=== PATIENT | female | born 1970 | race Caucasian/White ===

== ENCOUNTER 2019-07-29 10:25 | Emergency (ER) | payer OTHER, MEDICAID, SELFPAY ==
[2019-07-29 10:35] VITALS: BP 117/74; PULSE 75; RESP 15; TEMP 37.1; O2SAT 100; BMI 24.1
[2019-07-29 11:10] VITALS: BP 105/69; PULSE 72; RESP 17; O2SAT 98
--- NOTE | 2019-07-29 11:17 | ED_ITS ---
HPI - Neck Pain/Injury <IRWIN Smith - Last Filed: 07/29/19 22:02> General Chief Complaint: Neck Pain/Injury Stated Complaint: Neck/back pain Time Seen by Provider: 07/29/19 10:59 Source: patient Mode of arrival: ambulatory Limitations: no limitations History of Present Illness HPI Narrative: 48-year-old female with a history of viral meningitis 4 times, presents emergency department today complaining of chest pain for the last week, she states it was intermittent 3/10 sternal pressure that had no aggravating or relieving factors and spontaneously resolved and week. After resolved, she reported she woke up with full body aches and an episode of dizziness 5 days ago. The following day she developed a spinal aching as well as a headache. She reports her headache is diffuse and cannot locate a spot that is more severe, she states the headache is 8/10 and is worse with every step she takes or when her children drop on the bed. She states the pain radiates up and down her spine. Her headaches have been unchanged since 4 days ago. She does report a few episodes of nausea vomiting, she does not feel nauseated today. She does report she wakes up from the pain and occasionally finds herself in a pool of sweat. 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 She denies any vision changes, photophobia, phonophobia, hearing changes, facial droop, dysphagia, fevers, shortness of breath, chest pain at this time, difficulty walking, muscle weakness, dizziness at this time, or other concerning symptoms. Related Data Home Medications Medication Instructions Recorded Confirmed alprazolam 0.25 - 0.5 mg PO BEDTIME PRN 07/29/19 07/29/19 temazepam 15 - 30 mg PO BEDTIME PRN 07/29/19 07/29/19 valacyclovir 500 mg PO BID 07/29/19 07/29/19 Previous Rx's Medication Instructions Recorded ketorolac 10 mg PO Q6H #10 tab 07/29/19 Allergies Allergy/AdvReac Type Severity Reaction Status Date / Time No Known Drug Allergies Allergy Verified 07/29/19 10:35 Review of Systems <IRWIN Smith - Last Filed: 07/29/19 22:02> Review of Systems Narrative: REVIEW OF SYSTEMS: GENERAL: Denies fever, reports waking up in sweat, see HPI. HENT: No head trauma, hearing loss or sore throat. EYES: No loss of vision, double vision, eye pain, or irritation. CARDIOVASCULAR: Reports intermittent chest pain, see HPI. RESPIRATORY: No shortness of breath or cough. GASTROINTESTINAL: Reports an episode of nausea and vomiting, see HPI. GENITOURINARY: No flank pain or dysuria. MUSCULOSKELETAL: Reports myalgias, see HPI. Denies weakness. INTEGUMENTARY: No rash, lesions, or pruritus. NEURO: Reports headaches and neck pain, see HPI. No numbness, tingling, memory loss, or confusion. PSYCH: No behavior or mood changes. PFSH <IRWIN Smith - Last Filed: 07/29/19 22:02> Medical History Viral meningitis (Acute) Social History Smoking Status: Former smoker Social History Smoking Status: Former smoker Exam <IRWIN Smith - Last Filed: 07/29/19 22:02> Initial Vital Signs Initial Vital Signs: Vital Signs Temperature 98.8 F 07/29/19 10:35 Pulse Rate 75 07/29/19 10:35 Respiratory Rate 15 07/29/19 10:35 Blood Pressure 117/74 07/29/19 10:35 Pulse Oximetry 100 07/29/19 10:35 PHYSICAL EXAMINATION: GENERAL: Well groomed, alert, and cooperative. Sitting in bed with eyes wide open in all the lights in the room, patient does not appear to be in any distress. Answers questions promptly and appropriately. Vital signs noted. HENT: Normocephalic, atraumatic. Ear canals patent. Oral mucosa is pink and moist. EYES: PERRLA, EOMIs without pain, Conjunctiva pink, sclera white, no periorbital swelling. NECK: Patient reports increased pain and had with chin to chest movement, full range of motion of neck. However, negative Brudzinski and Kernig sign. CHEST: Normal to inspection and without deformities. CARDIOVASCULAR: S1 and S2 sounds normal. Regular rate and rhythm, no murmurs, clicks, or bruits. No pedal edema. RESPIRATORY: Normal respiratory rate, trachea midline, airway patent. No stridor, nasal flaring or accessory muscle use. Lungs are clear in all bowen without wheeze, rhonchi, or crackles. GASTROINTESTINAL: Bowel sounds normoactive. Abdomen is soft and non-tender. No organomegaly. MUSCULOSKELETAL: Normal gait and coordination. Equal tone and mass bilaterally. EXTREMITIES: CMS intact. Moves all extremities. SKIN: Warm, dry, soft, appropriate color for ethnicity. No lesions, rashes, or wounds. NEURO: Patient reports increased pain and had with chin to chest movement, full range of motion of neck. However, negative Brudzinski and Kernig sign. Oriented X 3. CN III-XIII grossly intact. Good coordination. No ataxia, or sensory deficits, or cognitive issues. PSYCH: Appropriate affect and mood. <Cecelia Dao MD - Last Filed: 07/30/19 16:24> Initial Vital Signs Initial Vital Signs: Vital Signs Temperature 98.8 F 07/29/19 10:35 Pulse Rate 75 07/29/19 10:35 Respiratory Rate 15 07/29/19 10:35 Blood Pressure 117/74 07/29/19 10:35 Pulse Oximetry 100 07/29/19 10:35 Course <IRWIN Smith - Last Filed: 07/29/19 22:02> Course Course Narrative: Patient reported she was feeling much better after the administration of fluids and Toradol. I discussed with patient extensively that her neuro examination and labs were reassuring, that a spinal tap was not indicated at this time as there was very little concern for bacterial meningitis. She requested to be referred to a headache specialist, referral was placed and she was sent home with pain medications. She was given very strict return precautions. Orders Ordered: Discontinued Medications Sodium Chloride (Normal Saline 0.9%) 1,000 mls @ 1,000 mls/hr IV BOLUS ONE Stop: 07/29/19 12:14 Last Infusion: 07/29/19 13:29 Dose: 1,000 mls/hr Documented by: Admin: 07/29/19 11:38 Dose: 1,000 mls/hr Documented by: JACKIE Ketorolac Tromethamine (Toradol) 30 mg IV NOW ONE Stop: 07/29/19 11:16 Last Admin: 07/29/19 11:37 Dose: 30 mg Documented by: BTONER Consultations Consultation #1: Patient staffed with Dr. Dao who also agreed that a spinal tap was not needed at this time. Vital Signs Vital signs: Vital Signs - 8 hr 07/29/19 10:35 07/29/19 11:10 Temperature 98.8 F Pulse Rate 75 72 Respiratory Rate 15 17 Blood Pressure 117/74 Blood Pressure [Left Arm] 105/69 Pulse Oximetry 100 98 <Cecelia Dao MD - Last Filed: 07/30/19 16:24> Orders Ordered: Discontinued Medications Sodium Chloride (Normal Saline 0.9%) 1,000 mls @ 1,000 mls/hr IV BOLUS ONE Stop: 07/29/19 12:14 Last Infusion: 07/29/19 13:29 Dose: 1,000 mls/hr Documented by: Admin: 07/29/19 11:38 Dose: 1,000 mls/hr Documented by: BTONER Ketorolac Tromethamine (Toradol) 30 mg IV NOW ONE Stop: 07/29/19 11:16 Last Admin: 07/29/19 11:37 Dose: 30 mg Documented by: BTONER Vital Signs Vital signs: Vital Signs - 8 hr 07/29/19 10:35 07/29/19 11:10 Temperature 98.8 F Pulse Rate 75 72 Respiratory Rate 15 17 Blood Pressure 117/74 Blood Pressure [Left Arm] 105/69 Pulse Oximetry 100 98 MDM - Neck Pain/Injury <IRWIN Smith - Last Filed: 07/29/19 22:02> Medical Records Attestation: I reviewed the patient's medical records. Lab Data Attestation: I reviewed the patient's lab results. Result diagrams: 07/29/19 11:40 07/29/19 12:14 Labs: Lab Results 07/29/19 07/29/19 07/29/19 Range/Units 11:40 11:40 11:40 WBC 5.0 (4.5-11.0) X10^3/uL RBC 4.21 (4.0-5.2) X10^6/uL Hgb 12.3 (12.0-16.0) g/dL Hct 36.9 (36-46) % MCV 87.8 (80-100) fL MCH 29.2 (26-34) PG MCHC 33.3 (30-36) % RDW 14.1 (11.6-14.8) % Plt Count 207 (150-400) X10^3/uL Neut % (Auto) 73.7 (50-75) % Lymph % (Auto) 16.6 L (25-40) % [place] % (Auto) 8.0 (3-14) % Eos % (Auto) 0.5 L (2-4) % Baso % (Auto) 1.2 (0-2) % Neut # (Auto) 3700 (2664-0234) /uL Lymph # (Auto) 800 L (2553-3822) /uL [place] # (Auto) 400 (0-900) /uL Eos # (Auto) 0 (0-450) /uL Baso # (Auto) 100 (0-100) /uL ESR 9 (0-20) MM/HR Sodium (137-145) mmol/L Potassium (3.4-5.1) mmol/L Chloride (98-107) mmol/L Carbon Dioxide (22-32) mmol/L BUN (7-17) mg/dL Creatinine (0.52-1.04) mg/dL Estimated GFR (>60) mL/min BUN/Creatinine Ratio (6-22) Glucose (70-100) mg/dL Calcium (8.4-10.2) mg/dL Total Bilirubin (0.2-1.3) mg/dL AST (14-36) IU/L ALT (9-52) IU/L Alkaline Phosphatase (38-126) U/L Total Creatine Kinase (30-135) U/L CK-MB (CK-2) CK-MB (CK-2) Rel Index Troponin I (0.01-0.034) ng/mL C-Reactive Protein (<1.0) mg/dL Total Protein (6.3-8.2) g/dL Albumin (3.5-5.0) g/dL Globulin (1.7-4.1) g/dL Albumin/Globulin Ratio (1.0-2.8) Influenza A & B (PCR) Negative (Negative) 07/29/19 07/29/19 07/29/19 Range/Units 12:14 12:14 12:14 WBC (4.5-11.0) X10^3/uL RBC (4.0-5.2) X10^6/uL Hgb (12.0-16.0) g/dL Hct (36-46) % MCV (80-100) fL MCH (26-34) PG MCHC (30-36) % RDW (11.6-14.8) % Plt Count (150-400) X10^3/uL Neut % (Auto) (50-75) % Lymph % (Auto) (25-40) % [place] % (Auto) (3-14) % Eos % (Auto) (2-4) % Baso % (Auto) (0-2) % Neut # (Auto) (4563-6378) /uL Lymph # (Auto) (2751-3029) /uL [place] # (Auto) (0-900) /uL Eos # (Auto) (0-450) /uL Baso # (Auto) (0-100) /uL ESR (0-20) MM/HR Sodium 139 (137-145) mmol/L Potassium 4.2 (3.4-5.1) mmol/L Chloride 110 H (98-107) mmol/L Carbon Dioxide 23 (22-32) mmol/L BUN 14 (7-17) mg/dL Creatinine 0.70 (0.52-1.04) mg/dL Estimated GFR > 60.0 (>60) mL/min BUN/Creatinine Ratio 20.0 (6-22) Glucose 85 (70-100) mg/dL Calcium 8.4 (8.4-10.2) mg/dL Total Bilirubin 0.3 (0.2-1.3) mg/dL AST 20 (14-36) IU/L ALT 22 (9-52) IU/L Alkaline Phosphatase 48 (38-126) U/L Total Creatine Kinase 53 (30-135) U/L CK-MB (CK-2) TNP CK-MB (CK-2) Rel Index TNP Troponin I < 0.012 (0.01-0.034) ng/mL C-Reactive Protein < 0.5 (<1.0) mg/dL Total Protein 6.1 L (6.3-8.2) g/dL Albumin 3.5 (3.5-5.0) g/dL Globulin 2.6 (1.7-4.1) g/dL Albumin/Globulin Ratio 1.3 (1.0-2.8) Influenza A & B (PCR) (Negative) ECG Data Interpretation: Normal sinus rhythm, rate 71, CT interval 144, QTC 380, no ST elevation or ST depression, no T-wave abnormality, no ectopy. EKG was also ready by Dr. Dao. [facility] Narrative Medical decision making narrative: Differential includes tension headache, neck strain, (these are most likely due to non remarkable labs, negative neurological exam, no nuchal rigidity). Less likely viral and bacterial meningitis (lack of photophobia or phonophobia, reassuring neurological exam, lack of recent illness, reassuring CRP and sed rate), cranial bleed (normal neurological exam). Patient was very well-appearing, could tolerate p.o. without vomiting, did not exhibit any sit it is of septic (high heart rate, elevated temperature, or other concerning finding) thus making her a good candidate for outpatient treatment. She was referred to the headache Clinic per request. Patient was given strict return precautions and follow-up instructions. <Cecelia Dao MD - Last Filed: 07/30/19 16:24> Lab Data Labs: Lab Results 07/29/19 07/29/19 07/29/19 Range/Units 11:40 11:40 11:40 WBC 5.0 (4.5-11.0) X10^3/uL RBC 4.21 (4.0-5.2) X10^6/uL Hgb 12.3 (12.0-16.0) g/dL Hct 36.9 (36-46) % MCV 87.8 (80-100) fL MCH 29.2 (26-34) PG MCHC 33.3 (30-36) % RDW 14.1 (11.6-14.8) % Plt Count 207 (150-400) X10^3/uL Neut % (Auto) 73.7 (50-75) % Lymph % (Auto) 16.6 L (25-40) % [place] % (Auto) 8.0 (3-14) % Eos % (Auto) 0.5 L (2-4) % Baso % (Auto) 1.2 (0-2) % Neut # (Auto) 3700 (8005-3107) /uL Lymph # (Auto) 800 L (9592-6759) /uL [place] # (Auto) 400 (0-900) /uL Eos # (Auto) 0 (0-450) /uL Baso # (Auto) 100 (0-100) /uL ESR 9 (0-20) MM/HR Sodium (137-145) mmol/L Potassium (3.4-5.1) mmol/L Chloride (98-107) mmol/L Carbon Dioxide (22-32) mmol/L BUN (7-17) mg/dL Creatinine (0.52-1.04) mg/dL Estimated GFR (>60) mL/min BUN/Creatinine Ratio (6-22) Glucose (70-100) mg/dL Calcium (8.4-10.2) mg/dL Total Bilirubin (0.2-1.3) mg/dL AST (14-36) IU/L ALT (9-52) IU/L Alkaline Phosphatase (38-126) U/L Total Creatine Kinase (30-135) U/L CK-MB (CK-2) CK-MB (CK-2) Rel Index Troponin I (0.01-0.034) ng/mL C-Reactive Protein (<1.0) mg/dL Total Protein (6.3-8.2) g/dL Albumin (3.5-5.0) g/dL Globulin (1.7-4.1) g/dL Albumin/Globulin Ratio (1.0-2.8) Influenza A & B (PCR) Negative (Negative) 07/29/19 07/29/19 07/29/19 Range/Units 12:14 12:14 12:14 WBC (4.5-11.0) X10^3/uL RBC (4.0-5.2) X10^6/uL Hgb (12.0-16.0) g/dL Hct (36-46) % MCV (80-100) fL MCH (26-34) PG MCHC (30-36) % RDW (11.6-14.8) % Plt Count (150-400) X10^3/uL Neut % (Auto) (50-75) % Lymph % (Auto) (25-40) % [place] % (Auto) (3-14) % Eos % (Auto) (2-4) % Baso % (Auto) (0-2) % Neut # (Auto) (8433-6475) /uL Lymph # (Auto) (1084-7632) /uL [place] # (Auto) (0-900) /uL Eos # (Auto) (0-450) /uL Baso # (Auto) (0-100) /uL ESR (0-20) MM/HR Sodium 139 (137-145) mmol/L Potassium 4.2 (3.4-5.1) mmol/L Chloride 110 H (98-107) mmol/L Carbon Dioxide 23 (22-32) mmol/L BUN 14 (7-17) mg/dL Creatinine 0.70 (0.52-1.04) mg/dL Estimated GFR > 60.0 (>60) mL/min BUN/Creatinine Ratio 20.0 (6-22) Glucose 85 (70-100) mg/dL Calcium 8.4 (8.4-10.2) mg/dL Total Bilirubin 0.3 (0.2-1.3) mg/dL AST 20 (14-36) IU/L ALT 22 (9-52) IU/L Alkaline Phosphatase 48 (38-126) U/L Total Creatine Kinase 53 (30-135) U/L CK-MB (CK-2) TNP CK-MB (CK-2) Rel Index TNP Troponin I < 0.012 (0.01-0.034) ng/mL C-Reactive Protein < 0.5 (<1.0) mg/dL Total Protein 6.1 L (6.3-8.2) g/dL Albumin 3.5 (3.5-5.0) g/dL Globulin 2.6 (1.7-4.1) g/dL Albumin/Globulin Ratio 1.3 (1.0-2.8) Influenza A & B (PCR) (Negative) Discharge Plan Departure Patient Disposition: Home Clinical Impression: Acute neck pain Headache Qualifiers: Headache type: other headache syndrome Qualified Code(s): G44.89 - Other headache syndrome Discharge Date/Time: 07/29/19 13:47 Instructions: DI for Viral Meningitis -- Adult Activity Restrictions/Additional Instructions: Thank you for entrusting me with your care today. As discussed, your labs are non concerning for heart problems or bacterial meningitis. We discussed that your inflammatory markers and neurologic exam are negative and that a lumbar puncture is not indicated today. Please follow up with her primary care provider or the provider listed below in the next week for re-evaluation. You may take ketorolac (Toradol) every 6 hours and Tylenol for pain, you can alternate these medications taking 1 every 3 hours, do not exceed more than 3 g of Tylenol in a day. Return to the emergency department if your headaches worsens, he develops high fevers, if uncontrollable vomiting, if chest pain, shortness of breath, syncope, confusion, or other concerning symptoms. Prescriptions: New ketorolac 10 mg tablet 10 mg PO Q6H Qty: 10 RF: 0 No Action valacyclovir 500 mg tablet 500 mg PO BID RF: 0 alprazolam 0.5 mg tablet 0.25 - 0.5 mg PO BEDTIME PRN (Reason: Insomnia) RF: 0 temazepam 15 mg capsule 15 - 30 mg PO BEDTIME PRN (Reason: Insomnia) RF: 0 Referrals: Camron Gastelum MD [Physician] - (Hx of viral meningitis x 4; continues to have episodes that feel like viral meningitis again. Patient requests referral. )
[2019-07-29] MEDS: KETOROLAC 60 MG/2 ML VIAL 30 MG IV (11:37)
[2019-07-29] MEDS: SODIUM CHLORIDE 0.9% 1,000 ML 1000 ML IV (11:38)
[2019-07-29 11:56] LABS: Add Manual Diff / Slide Review NO; Basophils Absolute Auto 100 /uL (0-100); Basophils Percent Auto 1.2 % (0-2); Eosinophils Absolute Auto 0 /uL (0-450); Eosinophils Percent Auto 0.5 % (2-4); Hematocrit 36.9 % (36-46); Hemoglobin 12.3 g/dL (12.0-16.0); Lymphocytes Absolute Auto 800 /uL (1100-4500); Lymphocytes Percent Auto 16.6 % (25-40); Mean Corpuscular HGB Conc 33.3 % (30-36); Mean Corpuscular Hemoglobin 29.2 PG (26-34); Mean Corpuscular Volume 87.8 fL (80-100); Monocytes Absolute Auto 400 /uL (0-900); Neutrophils Absolute Auto 3700 /uL (1500-7000); Neutrophils Percent Auto 73.7 % (50-75); Platelet Count 207 X10^3/uL (150-400); Red Blood Cell Count 4.21 X10^6/uL (4.0-5.2); Red Cell Distribution Width 14.1 % (11.6-14.8)
[2019-07-29 12:11] LABS: Erythrocyte Sedimentation Rate 9 MM/HR (0-20); Influenza A and B by PCR Rapid Negative (Negative)
[2019-07-29 12:32] LABS: Alanine Aminotransferase 22 IU/L (9-52); Albumin 3.5 g/dL (3.5-5.0); Albumin Globulin Ratio 1.3 (1.0-2.8); Alkaline Phosphatase 48 U/L (38-126); Aspartate Aminotransferase 20 IU/L (14-36); Bilirubin Total 0.3 mg/dL (0.2-1.3); Blood Urea Nitrogen 14 mg/dL (7-17); Calcium 8.4 mg/dL (8.4-10.2); Carbon Dioxide 23 mmol/L (22-32); Chloride 110 mmol/L (98-107); Creatine Kinase 53 U/L (30-135); Estimated Glomerular Filt Rate > 60.0 mL/min (>60); Globulin 2.6 g/dL (1.7-4.1); Glucose 85 mg/dL (70-100); HEMOLYSIS < 15 (0-50); Potassium 4.2 mmol/L (3.4-5.1); Sodium 139 mmol/L (137-145); Total Protein 6.1 g/dL (6.3-8.2)
[2019-07-29 12:35] LABS: C-Reactive Protein Quant < 0.5 mg/dL (<1.0)
[2019-07-29 12:44] LABS: Troponin I < 0.012 ng/mL (0.01-0.034)
[2019-07-29 13:47] VITALS: BP 116/71; PULSE 71; RESP 16; O2SAT 100
== END 2019-07-29 13:47 | disposition home or self-care (01) ==
PROVIDERS: Emergency Provider Nurse Practitioner
DX: M54.2 Cervicalgia (principal); G44.89 Other headache syndrome
CPT/HCPCS: 36415; 80053; 82550; 84484; 85025; 85651; 86140; 87400; 87502; 93005; 93010; 96361; 96374; 99283; 99284; J1885

== ENCOUNTER → 2021-08-27 08:51 | Outpatient (CLI) | payer OTHER, MEDICAID, SELFPAY ==
[2021-08-27 09:38] LABS: Hematocrit 39.8 % (36-46); Hemoglobin 13.1 g/dL (12.0-16.0); Mean Corpuscular HGB Conc 32.9 % (30-36); Mean Corpuscular Hemoglobin 29.8 PG (26-34); Mean Corpuscular Volume 90.5 fL (80-100); Platelet Count 212 X10^3/uL (150-400); Red Cell Distribution Width 14.8 % (11.6-14.8); White Blood Cell Count 6.7 X10^3/uL (4.5-11.0)
[2021-08-27 10:08] LABS: Alanine Aminotransferase 20 IU/L (<35); Albumin 3.8 g/dL (3.5-5.0); Albumin Globulin Ratio 1.5 (1.0-2.8); Alkaline Phosphatase 63 U/L (38-126); Aspartate Aminotransferase 26 IU/L (14-36); BUN Creatinine Ratio 16.7 (6-22); Bilirubin Total 0.4 mg/dL (0.2-1.3); Blood Urea Nitrogen 15 mg/dL (7-17); Calcium 9.3 mg/dL (8.4-10.2); Carbon Dioxide 27 mmol/L (22-32); Chloride 106 mmol/L (98-107); Cholesterol 172 mg/dL (140-199); Estimated Glomerular Filt Rate > 60.0 mL/min (>60); Globulin 2.6 g/dL (1.7-4.1); Glucose 77 mg/dL (70-100); HDL Cholesterol 70 mg/dL (40-60); HEMOLYSIS 22 (0-50); LDL Cholesterol Calculated 81 mg/dL (<100); Potassium 4.7 mmol/L (3.4-5.1); Sodium 138 mmol/L (137-145); Total Protein 6.4 g/dL (6.3-8.2); Triglycerides 105 mg/dL (35-150)
[2021-08-27 10:42] LABS: TSH w/ Reflex to FT4 1.85 uIU/mL (0.47-4.68)
== END ==
PROVIDERS: PCP Registered Nurse Diabetes Educator; Referring Provider Registered Nurse Diabetes Educator; Visit Provider Registered Nurse Diabetes Educator
DX: Z00.00 Encounter for general adult medical examination without abnormal findings (principal); E78.00 Pure hypercholesterolemia, unspecified; R73.01 Impaired fasting glucose
CPT/HCPCS: 36415; 80053; 80061; 84443; 85027

== ENCOUNTER → 2021-10-22 07:18 | Outpatient (CLI) | payer OTHER, MEDICAID, SELFPAY ==
--- NOTE | 2021-10-22 07:19 | DI.US.S_ITS ---
PROCEDURE: US PELVIC COMPLETE INDICATIONS: MENORRHAGIA TECHNIQUE: Real-time scanning was performed of the pelvic organs, with image documentation. Additional endovaginal scanning was necessary due to incomplete visualization of the adnexal and endometrial structures by transabdominal scanning. COMPARISON: None. FINDINGS: Uterus: Uterus is anteverted and normal in size at 9.2 x 6.3 x 6.2 cm. The myometrium is heterogeneous. The endometrium measures 18 mm combined thickness. Incidental note is made of nabothian cysts. An apparent complex nabothian cyst is seen that measures up to 1.2 cm. A left anterior fundal uterine fibroid is seen that measures up to 2 cm. Ovaries: The right ovary measures 3.7 x 2.8 x 2.1 cm. The left ovary measures 2.5 x 1.9 x 1.3 cm. The ovaries have a normal sonographic appearance, with a simple appearing right ovarian cyst seen that measures up to 2.9 cm, which is considered to be within physiologic limits. No adnexal masses are seen. Other: A mild amount of free pelvic fluid is seen, which is considered to be within physiologic limits. IMPRESSION: Thickening is seen of the endometrial stripe. 2 cm uterine fibroid incidentally noted. Nabothian cysts are seen, including a 1.2 cm complex nabothian cyst. We strive to produce accurate, complete, and clear reports of imaging services. To assist us in improving patient care, this report was composed using standard report templates and voice recognition software. Therefore, it may contain abnormal punctuation, insertions and/or omissions. Occasional wrong-word or sound-alike substitutions may occur. Though we review the report and make efforts to correct it, we do recommend that the report be read carefully in proper context to recognize any text inaccuracies. Dictated by: Papa Peralta M.D. on 10/22/2021 at 9:08 Approved by: Papa Peralta M.D. on 10/22/2021 at 9:10
== END ==
PROVIDERS: PCP Registered Nurse Diabetes Educator; Referring Provider Registered Nurse Diabetes Educator; Visit Provider Registered Nurse Diabetes Educator
DX: N92.0 Excessive and frequent menstruation with regular cycle (principal); D25.9 Leiomyoma of uterus, unspecified; R93.89 Abnormal findings on diagnostic imaging of other specified body structures; N88.8 Other specified noninflammatory disorders of cervix uteri
CPT/HCPCS: 76830; 76856

== ENCOUNTER → 2021-12-13 07:51 | Outpatient (CLI) | payer OTHER, MEDICAID, SELFPAY ==
--- NOTE | 2021-12-13 07:52 | DI.MG.S_ITS ---
BILATERAL DIGITAL SCREENING MAMMOGRAM 3D/2D WITH CAD: 12/13/2021 CLINICAL: Routine screening. Comparison is made to exams dated: 10/07/2019 mammogram, 02/03/2018 mammogram, 01/30/2018 mammogram, and 06/23/2015 mammogram - [facility]. The tissue of both breasts is heterogeneously dense. This may lower the sensitivity of mammography. Current study was also evaluated with a Computer Aided Detection (CAD) system. No significant masses, calcifications, or other findings are seen in either breast. There has been no significant interval change. IMPRESSION: NEGATIVE There is no mammographic evidence of malignancy. A 1 year screening mammogram is recommended. This exam was interpreted at Station ID: [id number]. NOTE: For mammograms, a report in lay terms will be sent to the patient. Approximately 15% of breast malignancies will not be visualized mammographically. In the management of a palpable breast mass, a negative mammogram must not discourage biopsy of a clinically suspicious lesion. Electronically Signed By: Renard parry/eduard:12/13/2021 09:01:22 letter sent: Normal Exam ACR BI-RADS Category 1: Negative [id number]
== END ==
PROVIDERS: PCP Registered Nurse Diabetes Educator; Referring Provider Registered Nurse Diabetes Educator; Visit Provider Registered Nurse Diabetes Educator
DX: Z12.31 Encounter for screening mammogram for malignant neoplasm of breast (principal)
CPT/HCPCS: 77063; 77067

== ENCOUNTER 2022-08-20 18:50 | Observation (INO) | payer OTHER, MEDICAID, SELFPAY ==
[2022-08-20] VITALS (11 sets, daily range): BP systolic 131; BP diastolic 64; PULSE 62–84; RESP 16–24; TEMP 37.1; O2SAT 95–97; BMI 25.8
--- NOTE | 2022-08-20 18:50 | DI.RAD.S_ITS ---
PROCEDURE: XR CHEST 1V INDICATIONS: chest pain TECHNIQUE: One view of the chest was acquired. COMPARISON: None. FINDINGS: Surgical changes and devices: None. Lungs and pleura: Lungs are clear. No pleural effusions or pneumothorax. Mediastinum: Mediastinal contours appear normal. Heart size is normal. Bones and chest wall: No suspicious bony lesions. Overlying soft tissues appear unremarkable. IMPRESSION: No acute cardiopulmonary abnormality. Dictated by: Renard Alcala M.D. on 08/20/2022 at 19:59 Approved by: Renard Alcala M.D. on 08/20/2022 at 20:04
--- NOTE | 2022-08-20 19:08 | ED.CHESTPAIN ---
HPI - Chest Pain General Chief Complaint: Chest Pain Stated Complaint: Chest pressure Time Seen by Provider: 08/20/22 18:52 History of Present Illness HPI narrative: Patient is a 51-year-old female with no past medical history is who presents with chest discomfort. 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 Pressure remained centrally located. No jaw pain. She was given is 3 nitroglycerines by EMS which did not help and finally morphine which did. She continues to have some chest discomfort but significantly more tolerable. Related Data Home Medications Medication Instructions Recorded Confirmed ascorbate calcium (vitamin C) PO 01/10/21 01/17/22 cholecalciferol (vitamin D3) PO 01/10/21 01/17/22 lactobacillus combination no.8 PO 01/10/21 01/17/22 [Adult Probiotic] melatonin 10 mg capsule 10 mg PO BEDTIME PRN 01/10/21 01/17/22 multivitamin [Daily Multivitamin] PO 01/10/21 01/17/22 zinc gluconate 30 mg tablet 30 mg PO DAILY 01/10/21 01/17/22 Previous Rx's Medication Instructions Recorded hydroxyzine HCl 10 mg tablet 10 mg PO BEDTIME #90 tabs 09/24/21 valacyclovir 500 mg tablet 500 mg PO BID #180 tabs 09/24/21 Allergies Allergy/AdvReac Type Severity Reaction Status Date / Time No Known Drug Allergies Allergy Verified 01/17/22 08:40 Review of Systems Review of Systems Narrative: GENERAL: Denies chills, fatigue, malaise, fever, sweats, travel HEENT: Denies sinus pain, ear pain, sore throat, difficulty swallowing, neck pain RESPIRATORY: Denies dyspnea, cough, wheezing, hemoptysis, sputum. CARDIOVASCULAR: See HPI GASTROINTESTINAL: Denies nausea, vomiting, abdominal pain, diarrhea, constipation, melena. : Denies dysuria, frequency, incontinence, hematuria, urinary retention, flank pain. MUSCULOSKELETAL: Denies weakness, joint pain, or bony pain SKIN: No rash, no erythema, no pruritus NEUROLOGIC: Denies weakness, dizziness, headache, numbness, change in speech, confusion PSYCHIATRIC: No concerning psychosocial issues. 12 point review of systems is negative except for those stated above and HPI Patient History Medical History ADHD Anxiety Enterovirus infection (~1999) History of uterine fibroid History of viral meningitis Impaired fasting blood sugar Menorrhagia Ovarian cyst Viral meningitis Surgical History Anesthesia Breast cyst History of section (~01/25/10) Family History Father Cancer Mother Hypertension Social History household members: family Smoking Status: Former smoker alcohol intake: never Smoking Status: Former smoker Substance Use Type: does not use Exam Initial Vital Signs Initial Vital Signs: Vital Signs Temperature 98.8 F 08/20/22 19:06 Pulse Rate 84 08/20/22 19:06 Respiratory Rate 18 08/20/22 19:06 Blood Pressure 131/64 08/20/22 19:06 Pulse Oximetry 96 08/20/22 19:06 Oxygen Delivery Method 08/20/22 19:06 GENERAL: Alert pleasant 51-year-old female HEENT: Head atraumatic,EOMI, pupils reactive, face symmetric, moist mucous membranes CARDIOVASCULAR: Regular rate and rhythm without murmurs, rubs or gallops. RESPIRATORY: Breath sounds equal bilaterally, no wheezes rales or rhonchi. ABDOMEN: Soft, nontender. Normoactive bowel sounds all 4 quadrants. No guarding or rebound. EXTREMITIES: Normal range of motion, no clubbing or edema. Neurovascularly intact NEUROLOGICAL: Alert and oriented x4.Normal gait and speech. SKIN: Warm, dry, no laceration, no petechiae, no rashes or lesions. Scores HEART Score Heart Score history: Highly Suspicious Heart Score EKG: Normal (New T-wave inversion) Heart Score Age: 45-64 years old Heart Score risk factors: No known risk factors Heart Score troponin: < or = to normal limit Heart Score Total: 3 Course Orders Ordered: ED Orders 08/20/22 19:23 EKG-12 Lead Stat 08/20/22 19:35 Complete Blood Count AUTO DIFF Stat Comprehensive Metabolic Panel Stat D Dimer Stat Lipase Stat Magnesium Stat Partial Thromboplastin Time Stat Prothrombin Time INR Stat Troponin & CK Cardiac Panel Stat 08/20/22 21:40 Troponin & CK Cardiac Panel Stat 08/20/22 23:16 Exercise treadmill NON NUC Urgent 08/21/22 05:00 Basic Metabolic Panel Routine Complete Blood Count AUTO DIFF Routine Lipid Panel Routine Troponin I Stat Acetaminophen (Acetaminophen 325 Mg Tablet) 650 mg PO Q6HR PRN PRN Reason: Fever/Mild Pain (1-3) Atorvastatin Calcium (Atorvastatin 20 Mg Tablet) 40 mg PO BEDTIME JESSICA Enoxaparin Sodium (Enoxaparin 40 Mg/0.4 Ml Syringe) 40 mg SUBCUT DAILY JESSICA Morphine Sulfate (Morphine 2 Mg/Ml Inj) 2 mg IV Q4HR PRN PRN Reason: Pain, Moderate (4-6) Nitroglycerin (Nitroglycerin 0.4 Mg Sl Tab) 0.4 mg SL [id number] PRN PRN Reason: Chest Pain Last Admin: 08/21/22 01:47 Dose: 0.4 mg Documented By: JESSE Ondansetron HCl (Ondansetron 4 Mg/2 Ml Inj) 4 mg IV Q8HR PRN PRN Reason: Nausea And Vomiting Discontinued Medications Aspirin (Aspirin Ec 81 Mg Tablet) 81 mg PO NOW ONE Stop: 08/21/22 01:04 Last Admin: 08/21/22 01:23 Dose: 81 mg Documented By: JESSE Nitroglycerin (Nitroglycerin 0.4 Mg Sl Tab) 0.4 mg SL [id number] PRN PRN Reason: Chest Pain Vital Signs Vital signs: Vital Signs - 8 hr 08/20/22 20:30 08/20/22 21:00 08/20/22 21:30 Pulse Rate 68 72 70 Respiratory Rate 16 19 16 Pulse Oximetry 95 95 95 08/20/22 22:00 08/20/22 22:30 08/20/22 23:00 Pulse Rate 65 68 65 Respiratory Rate 24 17 18 Pulse Oximetry 95 96 96 MDM - Chest Pain Lab Data Result diagrams: 08/20/22 19:35 08/20/22 19:35 Labs: Lab Results 08/20/22 08/20/22 08/20/22 Range/Units 19:35 19:35 19:35 WBC 11.3 H (4.5-11.0) X10^3/uL RBC 4.36 (4.0-5.2) X10^6/uL Hgb 13.1 (12.0-16.0) g/dL Hct 39.7 (36-46) % MCV 90.9 (80-100) fL MCH 30.0 (26-34) PG MCHC 33.0 (30-36) % RDW 13.8 (11.6-14.8) % Plt Count 228 (150-400) X10^3/uL Neut % (Auto) 84.6 H (50-75) % Lymph % (Auto) 8.4 L (25-40) % [place] % (Auto) 6.4 (3-14) % Eos % (Auto) 0.3 L (2-4) % Baso % (Auto) 0.3 (0-2) % Neut # (Auto) 9600 H (0875-1263) /uL Lymph # (Auto) 900 L (5657-5851) /uL [place] # (Auto) 700 (0-900) /uL Eos # (Auto) 0 (0-450) /uL Baso # (Auto) 0 (0-100) /uL PT 11.2 (10.1-12.7) SECONDS INR 1.0 (0.9-1.3) APTT 30 (26-36) SECONDS D-Dimer (<500) ng/ml Sodium 136 L (137-145) mmol/L Potassium 4.3 (3.4-5.1) mmol/L Chloride 108 H (98-107) mmol/L Carbon Dioxide 22 (22-32) mmol/L BUN 20 H (7-17) mg/dL Creatinine 0.92 (0.52-1.04) mg/dL Estimated GFR > 60 (>60) mL/min BUN/Creatinine Ratio 21.7 (6-22) Glucose 104 H (70-100) mg/dL Calcium 8.7 (8.4-10.2) mg/dL Magnesium 1.9 (1.6-2.3) mg/dL Total Bilirubin 0.2 (0.2-1.3) mg/dL AST 134 H (14-36) IU/L ALT 92 H (<35) IU/L Alkaline Phosphatase 77 (38-126) U/L Total Creatine Kinase 357 H (30-135) U/L CK-MB (CK-2) 1.36 (<2.37) ng/mL CK-MB (CK-2) Rel Index 0.4 L (1.5-5.0) % Troponin I < 0.012 (0.01-0.034) ng/mL Total Protein 6.8 (6.3-8.2) g/dL Albumin 3.9 (3.5-5.0) g/dL Globulin 2.9 (1.7-4.1) g/dL Albumin/Globulin Ratio 1.3 (1.0-2.8) Lipase 70 (23-300) U/L 08/20/22 08/20/22 Range/Units 19:35 21:40 WBC (4.5-11.0) X10^3/uL RBC (4.0-5.2) X10^6/uL Hgb (12.0-16.0) g/dL Hct (36-46) % MCV (80-100) fL MCH (26-34) PG MCHC (30-36) % RDW (11.6-14.8) % Plt Count (150-400) X10^3/uL Neut % (Auto) (50-75) % Lymph % (Auto) (25-40) % [place] % (Auto) (3-14) % Eos % (Auto) (2-4) % Baso % (Auto) (0-2) % Neut # (Auto) (4751-5078) /uL Lymph # (Auto) (4048-4023) /uL [place] # (Auto) (0-900) /uL Eos # (Auto) (0-450) /uL Baso # (Auto) (0-100) /uL PT (10.1-12.7) SECONDS INR (0.9-1.3) APTT (26-36) SECONDS D-Dimer 409 (<500) ng/ml Sodium (137-145) mmol/L Potassium (3.4-5.1) mmol/L Chloride (98-107) mmol/L Carbon Dioxide (22-32) mmol/L BUN (7-17) mg/dL Creatinine (0.52-1.04) mg/dL Estimated GFR (>60) mL/min BUN/Creatinine Ratio (6-22) Glucose (70-100) mg/dL Calcium (8.4-10.2) mg/dL Magnesium (1.6-2.3) mg/dL Total Bilirubin (0.2-1.3) mg/dL AST (14-36) IU/L ALT (<35) IU/L Alkaline Phosphatase (38-126) U/L Total Creatine Kinase 338 H (30-135) U/L CK-MB (CK-2) 1.26 (<2.37) ng/mL CK-MB (CK-2) Rel Index 0.4 L (1.5-5.0) % Troponin I < 0.012 (0.01-0.034) ng/mL Total Protein (6.3-8.2) g/dL Albumin (3.5-5.0) g/dL Globulin (1.7-4.1) g/dL Albumin/Globulin Ratio (1.0-2.8) Lipase (23-300) U/L Imaging Data Chest x-ray: Radiologist's Impression: No acute cardiopulmonary abnormality ECG Data Interpretation: Normal sinus rhythm 81 AK interval 142 the QRS 80 T-wave inversion noted in lead 3 and V3 which is new from previous EKG in 2019. Nonpathologic Q-wave noted in lead [address] changes. EKG 2. Sinus rhythm rate 67 similar to previous EKG MDM Narrative Medical decision making narrative: Patient's symptoms are concerning with diaphoresis shortness of breath and chest pressure. She has new T-wave inversion from 2019. She otherwise is healthy a former smoker. At this time do recommend admission for observation Dr. Lowe, accepts patient in ED to seen evaluate Discharge Plan Departure Patient Disposition: Admitted as Observation Clinical Impression: Chest pain Admit Date/Time: 08/20/22 23:23 Admit Provider: Antonio Lowe
[2022-08-20 20:16] LABS: Prothrombin Time 11.2 SECONDS (10.1-12.7)
[2022-08-20 20:17] LABS: Add Manual Diff / Slide Review NO; Basophils Absolute Auto 0 /uL (0-100); Basophils Percent Auto 0.3 % (0-2); Eosinophils Absolute Auto 0 /uL (0-450); Eosinophils Percent Auto 0.3 % (2-4); Hematocrit 39.7 % (36-46); Hemoglobin 13.1 g/dL (12.0-16.0); Lymphocytes Absolute Auto 900 /uL (1100-4500); Lymphocytes Percent Auto 8.4 % (25-40); Mean Corpuscular Volume 90.9 fL (80-100); Monocytes Absolute Auto 700 /uL (0-900); Monocytes Percent Auto 6.4 % (3-14); Neutrophils Absolute Auto 9600 /uL (1500-7000); Neutrophils Percent Auto 84.6 % (50-75); Platelet Count 228 X10^3/uL (150-400); Red Blood Cell Count 4.36 X10^6/uL (4.0-5.2); Red Cell Distribution Width 13.8 % (11.6-14.8); White Blood Cell Count 11.3 X10^3/uL (4.5-11.0)
[2022-08-20 20:19] LABS: PTT Partial Thromboplastin Tim 30 SECONDS (26-36)
[2022-08-20 20:23] LABS: Alanine Aminotransferase 92 IU/L (<35); Albumin 3.9 g/dL (3.5-5.0); Albumin Globulin Ratio 1.3 (1.0-2.8); Alkaline Phosphatase 77 U/L (38-126); Aspartate Aminotransferase 134 IU/L (14-36); BUN Creatinine Ratio 21.7 (6-22); Bilirubin Total 0.2 mg/dL (0.2-1.3); Blood Urea Nitrogen 20 mg/dL (7-17); Calcium 8.7 mg/dL (8.4-10.2); Carbon Dioxide 22 mmol/L (22-32); Chloride 108 mmol/L (98-107); Creatine Kinase 357 U/L (30-135); Estimated Glomerular Filt Rate > 60 mL/min (>60); Globulin 2.9 g/dL (1.7-4.1); Glucose 104 mg/dL (70-100); HEMOLYSIS < 15 (0-50); Lipase 70 U/L (23-300); Magnesium 1.9 mg/dL (1.6-2.3); Potassium 4.3 mmol/L (3.4-5.1); Sodium 136 mmol/L (137-145); Total Protein 6.8 g/dL (6.3-8.2)
[2022-08-20 20:35] LABS: Troponin I < 0.012 ng/mL (0.01-0.034)
[2022-08-20 20:38] LABS: CKMB % Relative Index 0.4 % (1.5-5.0); Creatine Kinase MB 1.36 ng/mL (<2.37)
--- NOTE | 2022-08-20 22:02 | PC.NURSE ---
pt ambulated to restroom with a steady gait
[2022-08-20 22:11] LABS: Creatine Kinase 338 U/L (30-135)
[2022-08-20 22:24] LABS: Troponin I < 0.012 ng/mL (0.01-0.034)
[2022-08-20 22:26] LABS: CKMB % Relative Index 0.4 % (1.5-5.0); Creatine Kinase MB 1.26 ng/mL (<2.37)
--- NOTE | 2022-08-20 23:16 | P.HP_ITS ---
History of Present Illness History of Present Illness Date Patient Seen: 08/20/22 Time Patient Seen: 23:00 Chief complaint: Chest pressure Narrative: Ms. Breaux is a 51W with PMH former smoker years ago, previous elevated LDL, who presents with sudden onset chest pain. She was at work when she had midsternal chest pain that radiated to back. Pain was described as a pressure on chest as if something was sitting on my chest. She had diaphoresis associated with t his. Never had chest pain, never stress test previously. No family history of cardiac disease or strokes. She was given morphine and nitro which helped her pain, but did not completely take it away. She did get aspirin en route. In the ED workup was done, vitals notable for unremarkable vital signs. Labs notable for WBC 11.3, Na 136, creatinine 0.92. AST/ALT 134/192. CK 338. Trop negative x2, EKG with new lateral t-wave inversions. Chest xray pending. She was admitted for further treatment. Patient History Medical History ADHD Anxiety Enterovirus infection (~1999) History of uterine fibroid History of viral meningitis Impaired fasting blood sugar Menorrhagia Ovarian cyst Viral meningitis Surgical History Anesthesia Breast cyst History of section (~01/25/10) Family & Social History Family History Father Cancer Mother Hypertension Safety & Behavioral: Feels Safe in Current Yes Environment Been Physically Hurt or No Threatened By a Person Tobacco & Substance use: Smoking Status Former smoker Substance Use Type does not use Meds Home Medications and Allergies Home Medications Medication Instructions Recorded Confirmed Type ascorbate calcium (vitamin C) PO 01/10/21 01/17/22 History cholecalciferol (vitamin D3) PO 01/10/21 01/17/22 History lactobacillus combination no.8 PO 01/10/21 01/17/22 History [Adult Probiotic] melatonin 10 mg capsule 10 mg PO BEDTIME PRN 01/10/21 01/17/22 History multivitamin [Daily Multivitamin] PO 01/10/21 01/17/22 History zinc gluconate 30 mg tablet 30 mg PO DAILY 01/10/21 01/17/22 History hydroxyzine HCl 10 mg tablet 10 mg PO BEDTIME #90 tabs 09/24/21 01/17/22 Rx valacyclovir 500 mg tablet 500 mg PO BID #180 tabs 09/24/21 01/17/22 Rx Allergies Allergy/AdvReac Type Severity Reaction Status Date / Time No Known Drug Allergies Allergy Verified 01/17/22 08:40 Review of Systems Review of Systems Narrative: 14 systems reviewed and negative aside from what is noted in HPI Exam Vital Signs (past 8 hours): - 08/20/22 19:06 08/20/22 19:10 Temperature 98.8 F Pulse Rate 84 79 Respiratory Rate 18 24 Blood Pressure 131/64 Pulse Oximetry 96 97 Oxygen Delivery Method Room Air Oxygen Delivery Method Room Air Narrative Exam Narrative: GEN: no acute distress HEENT: moist mucous membranes, PERRL NECK: trache midline, no JVD CV: regular rate and rhythm, no murmurs, no tenderness to palpation PULM: clear bilaterally, no wheezes, rhonchi, rales ABD: soft, nontender, nondistended, no organomegaly, normal bowel sounds EXT: warm and well perfused with no edema NEURO: awake, alert, oriented, no focal deficits Objective Labs Result Diagrams: 08/20/22 19:35 08/20/22 19:35 Labs: Laboratory Results - last 24 hr 08/20/22 08/20/22 08/20/22 19:35 19:35 19:35 WBC 11.3 H RBC 4.36 Hgb 13.1 Hct 39.7 MCV 90.9 MCH 30.0 MCHC 33.0 RDW 13.8 Plt Count 228 Neut % (Auto) 84.6 H Lymph % (Auto) 8.4 L [place] % (Auto) 6.4 Eos % (Auto) 0.3 L Baso % (Auto) 0.3 Neut # (Auto) 9600 H Lymph # (Auto) 900 L [place] # (Auto) 700 Eos # (Auto) 0 Baso # (Auto) 0 PT 11.2 INR 1.0 APTT 30 Sodium 136 L Potassium 4.3 Chloride 108 H Carbon Dioxide 22 BUN 20 H Creatinine 0.92 Estimated GFR > 60 BUN/Creatinine Ratio 21.7 Glucose 104 H Calcium 8.7 Magnesium 1.9 Total Bilirubin 0.2 AST 134 H ALT 92 H Alkaline Phosphatase 77 Total Creatine Kinase 357 H CK-MB (CK-2) 1.36 CK-MB (CK-2) Rel Index 0.4 L Troponin I < 0.012 Total Protein 6.8 Albumin 3.9 Globulin 2.9 Albumin/Globulin Ratio 1.3 Lipase 70 08/20/22 21:40 WBC RBC Hgb Hct MCV MCH MCHC RDW Plt Count Neut % (Auto) Lymph % (Auto) [place] % (Auto) Eos % (Auto) Baso % (Auto) Neut # (Auto) Lymph # (Auto) [place] # (Auto) Eos # (Auto) Baso # (Auto) PT INR APTT Sodium Potassium Chloride Carbon Dioxide BUN Creatinine Estimated GFR BUN/Creatinine Ratio Glucose Calcium Magnesium Total Bilirubin AST ALT Alkaline Phosphatase Total Creatine Kinase 338 H CK-MB (CK-2) 1.26 CK-MB (CK-2) Rel Index 0.4 L Troponin I < 0.012 Total Protein Albumin Globulin Albumin/Globulin Ratio Lipase Assessment & Plan Assessment & Plan narrative: Ms. Breaux is a 51W who presents with chest pain 1. Acute chest pain -patient with ekg changes with new T-wave inversions, classic sounding chest pain, with age, and former smoker and history of previous ldl has HEART score 4-5 -troponins negative x2 -EKG with t-wave inversions not present prior -ordered for aspirin/statin -check d-dimer -ordered for exercise stress test 2. Transaminitis -unclear etiology -repeat in AM, if still elevated may need further workup CODE: Full Proxy: Phill Breaux, family I have utilized all available resources to reconcile the patient's home medications. Time Spent With Patient Critical Care time: I spent a total of [] minutes of critical care time on this patient's care today; this time is exclusive of procedural time. Quality MIPS - Admit I confirm the patient?s Advance Care Plan is present, Code status is documented, Surrogate decision maker is in patient?s record [If Yes, STOP here]: Yes
[2022-08-20 23:24] LABS: D Dimer 409 ng/ml (<500)
[2022-08-21] VITALS (18 sets, daily range): BP systolic 95–126; BP diastolic 64–82; PULSE 63–88; RESP 14–87; TEMP 36.2–36.8; O2SAT 93–99; BMI 25.8
--- NOTE | 2022-08-21 | PATH_ITS ---
[facility] Accession Number: [id number] No. of containers..01 Tissue . 01 Material submitted: . gallbladder - GALLBLADDER . 01 Clinical history: . CHEST PRESSURE . 01 Diagnosis: Gallbladder, Cholecystectomy: Chronic cholecystitis with cholelithiasis and cholesterolosis. Negative for dysplasia and malignancy. MRV 08/26/2022 1334 Local . 01 Electronically signed: . Katerina Hinojosa MD, Pathologist NPI- [id number] . 01 Gross description: . The specimen is received in formalin labeled with the patient's name and gallbladder, and consists of an intact gallbladder measuring 7.9 x 3.4 x 1.7 cm. The serosa is carver to green, smooth, and congested while the hepatic surface is rough and unremarkable. The cystic duct is received closed with a clamp, is inked blue, and no pericystic lymph node is identified. Opening the specimen reveals the lumen to be filled with dark green mucoid bile and multiple yellow bosselated calculi obstructing the cystic duct and measuring up to 0.8 cm in greatest dimension. The mucosa is dark green and velvety with numerous pinpoint yellow areas of discoloration consistent with cholesterol deposits. A dark brown polypoid structure is identified measuring 0.4 cm in greatest dimension while no additional polyps or lesions are identified. The poole average 0.4 cm thick. Yard Manager sections to include the cystic duct margin and full-thickness sections are submitted in cassette A1. ([id number]) /MRV 08/22/2022 1733 Local . 01 Pathologist provided ICD-10: K80.60 . 01 CPT . 566206 Specimen Comment: A courtesy copy of this report has been sent to [phone] Performed at: 01 [facility] [address] [facility], [place], [place] [id number] MD Kendall Galvez MD Phone: [phone]
[2022-08-21 00:33] LABS: COVID19 -Nasal RAPID Negative (Negative)
[2022-08-21] MEDS: ASPIRIN EC 81 MG TABLET PO (01:23)
[2022-08-21] MEDS: NITROGLYCERIN 0.4 MG SL TAB SL ×2 (01:25→01:47)
--- NOTE | 2022-08-21 02:00 | DI.CT.S_ITS ---
PROCEDURE: CT ANGIO CHEST PE PROTOCOL INDICATIONS: chest pain TECHNIQUE: After the administration of intravenous contrast, 2 mm thick sections acquired from the pulmonary apices to the posterior costophrenic angles. 3-dimensional maximum intensity projection (MIP) coronal and sagittal reformats were then acquired through the thorax. For radiation dose reduction, the following was used: automated exposure control, adjustment of mA and/or kV according to patient size. COMPARISON: None. FINDINGS: Image quality: Excellent. Pulmonary arteries: Pulmonary arteries are normal in size, and demonstrate no intraluminal filling defects to suggest central pulmonary embolism. Lungs and pleura: Mild bibasilar atelectasis. No septal thickening or nodularity. No focal consolidation. No suspicious pulmonary nodules. No pleural effusions or pneumothorax. Central and peripheral airways are patent. Mediastinum: Heart size is normal, without pericardial effusion. No mediastinal or hilar adenopathy. Thoracic aorta is normal in caliber and enhancement. Esophagus is normal in caliber, without hiatal hernia. Bones and chest wall: No suspicious bony lesions. Ribs and thoracic spine appear intact throughout. Thyroid gland is unremarkable. No axillary or supraclavicular adenopathy. No acute compression fractures. Abdomen: Visualized upper abdominal solid organs appear normal in the early arterial phase of enhancement. IMPRESSION: No acute pulmonary emboli identified. No evidence for acute right-sided heart strain. No evidence for aneurysmal dilatation or aortic dissection. No acute cardiopulmonary abnormalities identified. No significant discrepancy with the shift boss radiology preliminary report. Dictated by: Geovanni Leung M.D. on 08/21/2022 at 7:52 Approved by: Geovanni Leung M.D. on 08/21/2022 at 7:58
--- NOTE | 2022-08-21 02:00 | DI.CT.S_ITS ---
PROCEDURE: CT ABDOMEN PELVIS W CON INDICATIONS: transaminitis, gallbladder disease? TECHNIQUE: After the administration of intravenous contrast, axial sections acquired from the lung bases to the pubic symphysis. Coronal and sagittal reformats were performed. For radiation dose reduction, the following was used: automated exposure control, adjustment of mA and/or kV according to patient size. COMPARISON: None. FINDINGS: Image quality: Excellent. Lung bases: Unremarkable. Heart: No significant findings. ABDOMEN: Liver: Minimal central intrahepatic biliary ductal prominence. Otherwise, liver is unremarkable. No focal lesions. Gallbladder: Gallbladder appears distended with suggestion of gallbladder wall thickening and mild pericholecystic stranding. No definite gallstones identified. Biliary ducts: Minimal prominence of the common bile duct. Pancreas: Homogeneous enhancement without focal lesions or pancreatic ductal dilatation. No peripancreatic inflammation or organized fluid collections. Spleen: Unremarkable. Adrenal Glands: Unremarkable. Kidneys and Ureters: Kidneys are symmetric in size and enhancement, and there is no obstructive uropathy. No perinephric inflammatory changes. Ureters are normal in course and caliber. Stomach and Bowel: Stomach, small bowel loops, and colon are unremarkable. Normal appendix Peritoneum: No abnormal intraperitoneal fluid. No free air. Ventral Wall: There is a fat-containing umbilical hernia without acute inflammation. Abdominal Nodes: No retroperitoneal or mesenteric adenopathy by size criteria. Vessels: Aorta and inferior vena cava are normal in size. PELVIS: Pelvic Organs: The uterus is prominent in size with findings suggestive of multifibroid uterus. Bladder: Urinary bladder thickness appears normal for degree of distention. No perivesicular inflammatory stranding. Pelvic Nodes: No enlarged lymph nodes. Miscellaneous: No hernias are seen. Bones: Osseous structures are intact. No acute compression fracture. No suspicious osseous lesion. IMPRESSION: There is distension of gallbladder with suggestion of gallbladder wall thickening and pericholecystic inflammatory stranding. Findings are suspicious for acute cholecystitis. However, recommend further evaluation with right upper quadrant ultrasound. Otherwise, no acute abnormalities identified in the abdomen or pelvis. Specifically, no evidence for colitis, acute diverticulitis, bowel obstruction, pancreatitis, obstructive uropathy, or acute appendicitis. No significant discrepancy with the visual c developer radiology preliminary report. Dictated by: Geovanni Leung M.D. on 08/21/2022 at 8:02 Approved by: Geovanni Leung M.D. on 08/21/2022 at 8:08
[2022-08-21] MEDS: MORPHINE 2 MG/ML INJ IV (04:03)
--- NOTE | 2022-08-21 05:39 | DI.US.S_ITS ---
PROCEDURE: US ABDOMEN LIMITED INDICATIONS: POSSIBLE CHOLECYSTITIS TECHNIQUE: Real-time focused scanning was performed of the abdomen, with image documentation. COMPARISON: [facility], CT, CT ABDOMEN PELVIS W CON, 08/21/2022, 2:36. FINDINGS: The included liver is normal in size and echogenicity. Multiple gallstones are seen in the gallbladder with posterior shadowing. Gallbladder wall is mildly thickened to 4 mm. There is trace pericholecystic fluid. Sonographic Stevens sign is positive. No significant intrahepatic or extrahepatic biliary ductal dilatation. Common bile duct measures 5.6 mm in diameter. The included portions of the pancreas are unremarkable. IMPRESSION: Findings suspicious for acute cholecystitis including cholelithiasis, gallbladder wall thickening, pericholecystic fluid, and positive sonographic Stevens's sign. Recommend correlation with clinical and laboratory findings. Dictated by: Renard Martinez M.D. on 08/21/2022 at 7:57 Approved by: Renard Martinez M.D. on 08/21/2022 at 8:00
[2022-08-21 06:10] LABS: Add Manual Diff / Slide Review NO; Basophils Absolute Auto 0 /uL (0-100); Basophils Percent Auto 0.3 % (0-2); Eosinophils Absolute Auto 100 /uL (0-450); Eosinophils Percent Auto 0.8 % (2-4); Hematocrit 40.4 % (36-46); Hemoglobin 13.6 g/dL (12.0-16.0); Lymphocytes Absolute Auto 900 /uL (1100-4500); Lymphocytes Percent Auto 9.5 % (25-40); Mean Corpuscular HGB Conc 33.7 % (30-36); Mean Corpuscular Hemoglobin 30.7 PG (26-34); Mean Corpuscular Volume 91.2 fL (80-100); Monocytes Absolute Auto 700 /uL (0-900); Monocytes Percent Auto 7.5 % (3-14); Neutrophils Absolute Auto 7600 /uL (1500-7000); Neutrophils Percent Auto 81.9 % (50-75); Platelet Count 214 X10^3/uL (150-400); Red Blood Cell Count 4.43 X10^6/uL (4.0-5.2); Red Cell Distribution Width 13.7 % (11.6-14.8); White Blood Cell Count 9.3 X10^3/uL (4.5-11.0)
[2022-08-21 06:33] LABS: BUN Creatinine Ratio 17.4 (6-22); Blood Urea Nitrogen 15 mg/dL (7-17); Calcium 8.6 mg/dL (8.4-10.2); Carbon Dioxide 23 mmol/L (22-32); Chloride 106 mmol/L (98-107); Cholesterol 203 mg/dL (140-199); Estimated Glomerular Filt Rate > 60 mL/min (>60); Glucose 85 mg/dL (70-100); HDL Cholesterol 66 mg/dL (40-60); HEMOLYSIS < 15 (0-50); LDL Cholesterol Calculated 119 mg/dL (<100); Potassium 4.3 mmol/L (3.4-5.1); Sodium 135 mmol/L (137-145); Triglycerides 88 mg/dL (35-150)
[2022-08-21] MEDS: PIPERACILLIN/TAZO 4.5 GM in SODIUM CHLORIDE 0.9% 100 ML IV (06:42)
[2022-08-21 07:51] LABS: Alanine Aminotransferase 200 IU/L (<35); Albumin 3.8 g/dL (3.5-5.0); Albumin Globulin Ratio 1.3 (1.0-2.8); Alkaline Phosphatase 78 U/L (38-126); Aspartate Aminotransferase 264 IU/L (14-36); Bilirubin Unconjugated 0.4 mg/dL (0.0-1.1); Globulin 2.9 g/dL (1.7-4.1); HEMOLYSIS < 15 (0-50); Total Protein 6.7 g/dL (6.3-8.2)
[2022-08-21 07:54] LABS: Troponin I < 0.012 ng/mL (0.01-0.034)
--- NOTE | 2022-08-21 08:54 | P.PN_ITS ---
Exam Vital Signs (past 8 hours): - 08/21/22 01:03 08/21/22 01:25 08/21/22 01:47 Temperature 98.3 F Pulse Rate 65 65 66 Respiratory Rate 19 Blood Pressure 117/77 117/77 110/74 Pulse Oximetry 98 08/21/22 04:00 Temperature 98.3 F Pulse Rate 70 Respiratory Rate 16 Blood Pressure 105/64 Pulse Oximetry 99 Oxygen Delivery Method Room Air Narrative Exam Narrative: GEN: no acute distress HEENT: moist mucous membranes, PERRL NECK: trache midline, no JVD CV: regular rate and rhythm, no murmurs, no tenderness to palpation PULM: clear bilaterally, no wheezes, rhonchi, rales ABD: soft, nontender, nondistended, no organomegaly, normal bowel sounds EXT: warm and well perfused with no edema NEURO: awake, alert, oriented, no focal deficits Objective Labs Result Diagrams: 08/21/22 05:50 08/21/22 05:50 Labs: Laboratory Results - last 24 hr 08/20/22 08/20/22 08/20/22 19:35 19:35 19:35 WBC 11.3 H RBC 4.36 Hgb 13.1 Hct 39.7 MCV 90.9 MCH 30.0 MCHC 33.0 RDW 13.8 Plt Count 228 Neut % (Auto) 84.6 H Lymph % (Auto) 8.4 L [place] % (Auto) 6.4 Eos % (Auto) 0.3 L Baso % (Auto) 0.3 Neut # (Auto) 9600 H Lymph # (Auto) 900 L [place] # (Auto) 700 Eos # (Auto) 0 Baso # (Auto) 0 PT 11.2 INR 1.0 APTT 30 D-Dimer Sodium 136 L Potassium 4.3 Chloride 108 H Carbon Dioxide 22 BUN 20 H Creatinine 0.92 Estimated GFR > 60 BUN/Creatinine Ratio 21.7 Glucose 104 H Calcium 8.7 Magnesium 1.9 Total Bilirubin 0.2 Conjugated Bilirubin Unconjugated Bilirubin AST 134 H ALT 92 H Alkaline Phosphatase 77 Total Creatine Kinase 357 H CK-MB (CK-2) 1.36 CK-MB (CK-2) Rel Index 0.4 L Troponin I < 0.012 Total Protein 6.8 Albumin 3.9 Globulin 2.9 Albumin/Globulin Ratio 1.3 Triglycerides Cholesterol LDL Cholesterol, Calc HDL Cholesterol Lipase 70 SARS-CoV-2 (PCR) 08/20/22 08/20/22 08/20/22 19:35 21:40 23:50 WBC RBC Hgb Hct MCV MCH MCHC RDW Plt Count Neut % (Auto) Lymph % (Auto) [place] % (Auto) Eos % (Auto) Baso % (Auto) Neut # (Auto) Lymph # (Auto) [place] # (Auto) Eos # (Auto) Baso # (Auto) PT INR APTT D-Dimer 409 Sodium Potassium Chloride Carbon Dioxide BUN Creatinine Estimated GFR BUN/Creatinine Ratio Glucose Calcium Magnesium Total Bilirubin Conjugated Bilirubin Unconjugated Bilirubin AST ALT Alkaline Phosphatase Total Creatine Kinase 338 H CK-MB (CK-2) 1.26 CK-MB (CK-2) Rel Index 0.4 L Troponin I < 0.012 Total Protein Albumin Globulin Albumin/Globulin Ratio Triglycerides Cholesterol LDL Cholesterol, Calc HDL Cholesterol Lipase SARS-CoV-2 (PCR) Negative 08/21/22 08/21/22 08/21/22 05:50 05:50 05:50 WBC 9.3 RBC 4.43 Hgb 13.6 Hct 40.4 MCV 91.2 MCH 30.7 MCHC 33.7 RDW 13.7 Plt Count 214 Neut % (Auto) 81.9 H Lymph % (Auto) 9.5 L [place] % (Auto) 7.5 Eos % (Auto) 0.8 L Baso % (Auto) 0.3 Neut # (Auto) 7600 H Lymph # (Auto) 900 L [place] # (Auto) 700 Eos # (Auto) 100 Baso # (Auto) 0 PT INR APTT D-Dimer Sodium Potassium Chloride Carbon Dioxide BUN Creatinine Estimated GFR BUN/Creatinine Ratio Glucose Calcium Magnesium Total Bilirubin 1.0 Conjugated Bilirubin 0.0 Unconjugated Bilirubin 0.4 AST 264 H ALT 200 H Alkaline Phosphatase 78 Total Creatine Kinase CK-MB (CK-2) CK-MB (CK-2) Rel Index Troponin I < 0.012 Total Protein 6.7 Albumin 3.8 Globulin 2.9 Albumin/Globulin Ratio 1.3 Triglycerides Cholesterol LDL Cholesterol, Calc HDL Cholesterol Lipase SARS-CoV-2 (PCR) 08/21/22 05:50 WBC RBC Hgb Hct MCV MCH MCHC RDW Plt Count Neut % (Auto) Lymph % (Auto) [place] % (Auto) Eos % (Auto) Baso % (Auto) Neut # (Auto) Lymph # (Auto) [place] # (Auto) Eos # (Auto) Baso # (Auto) PT INR APTT D-Dimer Sodium 135 L Potassium 4.3 Chloride 106 Carbon Dioxide 23 BUN 15 Creatinine 0.86 Estimated GFR > 60 BUN/Creatinine Ratio 17.4 Glucose 85 Calcium 8.6 Magnesium Total Bilirubin Conjugated Bilirubin Unconjugated Bilirubin AST ALT Alkaline Phosphatase Total Creatine Kinase CK-MB (CK-2) CK-MB (CK-2) Rel Index Troponin I Total Protein Albumin Globulin Albumin/Globulin Ratio Triglycerides 88 Cholesterol 203 H LDL Cholesterol, Calc 119 H HDL Cholesterol 66 H Lipase SARS-CoV-2 (PCR) [facility] Medical History ADHD Anxiety Enterovirus infection (~1999) History of uterine fibroid History of viral meningitis Impaired fasting blood sugar Menorrhagia Ovarian cyst Viral meningitis Surgical History Anesthesia Breast cyst History of section (~01/25/10) Family History Father Cancer Mother Hypertension Social History household members: family Smoking Status: Former smoker alcohol intake: never Assessment & Plan Assessment & Plan narrative: Ms. Breaux is a 51W who presents with chest pain 1. Acute chest pain -patient with ekg changes with new T-wave inversions, classic sounding chest pain, with age, and former smoker and history of previous ldl has HEART score 4- 5 -troponins negative x2 -EKG with t-wave inversions not present prior -ordered for aspirin/statin -d-dimer negative -obtain echo, no stress test due to lap george 2. Acute cholecystitis -per Abd CT and Abd US with gallbladder distention, wall thickening and pericholecystic fluid -Dr. White, gen surg consulted and will take for lap george today -keep NPO CODE: Full Proxy: Pihll Breaux, family I have utilized all available resources to reconcile the patient's home medications. Time Spent With Patient Critical Care time: I spent a total of [] minutes of critical care time on this patient's care today; this time is exclusive of procedural time.
--- NOTE | 2022-08-21 08:57 | DI.ECHO.S_ITS ---
[facility] +---------+ : : [address] : [place] : : : : [id number] : : : : Phone: [phone] Echocardiogram Report + + :Name: PACHECO PIKE Study Date: 08/21/2022 Height: 66 in : :[facility] ReadingLocation: Weight: 160 lb : : Gender: Female BSA: 1.8 m2 : :: 1970 Age: 51 yrs BP: 116/65 mmHg: :Reason For Study: CHEST PAIN, NEGATIVE TROPONINS : :Ordering Physician: KRYSTINA, : :JAIMEE Lala D.O Performed By: Holley Verma : :Referring: JAIMEE FLAHERTY D.O : + + Interpretation Summary 1) Normal left ventricular thickness, size, wall motion, and systolic function (EF 60-65%). 2) Normal right ventricular size and function. 3) No significant valvular abnormalities. 4) No prior Echo available for comparison. Procedure: A two-dimensional transthoracic echocardiogram with color flow and Doppler was performed. The study quality was technically adequate. There is no prior echocardiogram noted for this patient. The patient was in sinus rhythm with heart rates between 59-76 bpm during the exam. Left Ventricle: The left ventricle is normal in size and wall thickness. The ejection fraction is estimated to be 60-65%. Left ventricular systolic function appears normal without focal wall motion abnormalities. Diastolic parameters suggest probable normal left ventricular diastolic function and normal filling pressures. Right Ventricle: The right ventricle is normal in size and function. Atria: The left atrial size is normal. Right atrial size is normal. There is no Doppler evidence for an interatrial shunt. Mitral Valve: The mitral valve is normal in structure and function. There is mild mitral regurgitation. Aortic Valve: The aortic valve is normal in structure and function. There is no aortic valve stenosis. No aortic regurgitation is present. Tricuspid Valve: The tricuspid valve is normal in structure and function. There is trace tricuspid regurgitation. Pulmonic Valve: The pulmonic valve is not well seen, but is grossly normal. There is trace pulmonic regurgitation. Great Vessels: The aortic root is normal size. The dimensions of the ascending aorta are normal. The pulmonary artery is normal size. The IVC is of normal diameter and collapses greater than 50% with a sniff. This suggests a low right atrial pressure of 3 mm Hg. Pericardium/ Pleura There is no pericardial effusion. There is no pleural effusion. MMode/2D Measurements & Calculations LVIDd: 4.9 cm LVOT diam: 2.0 cm LVIDs: 3.4 cm Ao root diam: 3.1 cm FS: 29.8 % asc Aorta Diam: 3.0 cm IVSd: 0.84 cm Ao Arch Diam (Prox Trans): 2.9 cm LVPWd: 0.54 cm LV mg. diameter/BSA (cm/m^2): 2.7 LV sys. diameter/BSA (cm/m^2): 1.9 LA A2 area: 13.5 cm2 RA long axis: 4.4 cm LA A4 area: 14.3 cm2 RA area: 14.8 cm2 LA length (vol): 5.1 cm RA vol: 42.4 ml LA vol: 31.9 ml RA : 23.3 ml/m2 LA vol index: 17.5 ml/m2 IVC diam: 1.6 cm RVD1 (basal): 3.4 cm RVD2 (mid): 2.9 cm TAPSE: 1.8 cm Doppler Measurements & Calculations Ao V2 max: 125.9 cm/sec LVOT Max Pillo: 108.1 cm/sec Ao V2 mean: 92.0 cm/sec LV V1 max P.7 mmHg Ao max P.3 mmHg LV V1 VTI: 23.0 cm Ao mean P.7 mmHg CHAPIN(I,D): 2.6 cm2 Ao V2 VTI: 28.7 cm CHAPIN(V,D): 2.8 cm2 sev ratio: 0.80 CHAPIN indexed to BSA (cm^2/m^2): 1.4 MV E max pillo: 70.6 cm/sec PA V2 max: 84.8 cm/sec MV A max pillo: 58.5 cm/sec PA V2 mean: 57.8 cm/sec MV E/A: 1.2 PA mean P.6 mmHg Med Peak E' Pillo: 9.5 cm/sec PA pr(Accel): 31.0 mmHg E/E' med: 7.4 Lat Peak E' Pillo: 10.0 cm/sec E/E' lat: 7.1 E/e' average: 7.3 MV dec time: 0.18 sec SV(LVOT): 74.7 ml Reading Physician:12:02 PM
[2022-08-21] MEDS: PIPERACILLIN/TAZO 3.375 GM in SODIUM CHLORIDE 0.9% 100 ML IV (11:11)
--- NOTE | 2022-08-21 13:42 | PM.CN ---
History of Present Illness Consult details Date Patient Seen: 08/21/22 Time Patient Seen: 13:42 Chief complaint: Chest pressure Narrative: 51-year-old woman admitted to the hospital for cardiac workup found to have acute cholecystitis. She presented to the hospital with severe sternal pressure and shortness of breath. Troponin, echocardiogram and CTA chest were negative. On further imaging a large distended gallbladder with stones wall thickening and pericholecystic fluid was demonstrated. She has had previous similar episodes of similar right upper quadrant/epigastric pain after eating. Currently moderate epigastric pain no nausea vomiting. WBC 9, total bilirubin 1.0, AST 260, ALT 200. Meds Home Medications and Allergies Home Medications Medication Instructions Recorded Confirmed Type ascorbate calcium (vitamin C) 1,000 mg PO DAILY 01/10/21 08/21/22 History cholecalciferol (vitamin D3) 1 tab-cap PO DAILY 01/10/21 08/21/22 History multivitamin [Daily Multivitamin] 1 tab PO DAILY 01/10/21 08/21/22 History valacyclovir 500 mg tablet 500 mg PO BID #180 tabs 09/24/21 08/21/22 Rx acetaminophen 325 mg capsule 650 mg PO QID PRN pain #60 caps 08/21/22 Rx (Tylenol) hydroxyzine HCl 10 mg tablet 15 mg PO BEDTIME 08/21/22 08/21/22 History ibuprofen 200 mg tablet 400 mg PO Q6H #60 tabs 08/21/22 Rx oxycodone 5 mg tablet 5 mg PO Q6H PRN pain #20 tabs 08/21/22 Rx Allergies Allergy/AdvReac Type Severity Reaction Status Date / Time No Known Drug Allergies Allergy Verified 01/17/22 08:40 Exam Vital Signs (past 8 hours): - 08/21/22 09:41 08/21/22 07:40 Temperature 97.6 F Pulse Rate 69 Respiratory Rate 18 Blood Pressure 108/68 Pulse Oximetry 97 Oxygen Delivery Method Room Air Oxygen Flow Rate 0 Oxygen Delivery Method Room Air Oxygen Flow Rate 0 Narrative Exam Narrative: General adult woman alert oriented no acute distress Chest nonlabored respiration Abdomen right upper quadrant tenderness with palpation. No peritonitis. Extremities warm well perfused Objective Labs Result Diagrams: 08/21/22 05:50 08/21/22 05:50 Labs: Laboratory Results - last 24 hr 08/20/22 08/20/22 08/20/22 19:35 19:35 19:35 WBC 11.3 H RBC 4.36 Hgb 13.1 Hct 39.7 MCV 90.9 MCH 30.0 MCHC 33.0 RDW 13.8 Plt Count 228 Neut % (Auto) 84.6 H Lymph % (Auto) 8.4 L [place] % (Auto) 6.4 Eos % (Auto) 0.3 L Baso % (Auto) 0.3 Neut # (Auto) 9600 H Lymph # (Auto) 900 L [place] # (Auto) 700 Eos # (Auto) 0 Baso # (Auto) 0 PT 11.2 INR 1.0 APTT 30 D-Dimer Sodium 136 L Potassium 4.3 Chloride 108 H Carbon Dioxide 22 BUN 20 H Creatinine 0.92 Estimated GFR > 60 BUN/Creatinine Ratio 21.7 Glucose 104 H Calcium 8.7 Magnesium 1.9 Total Bilirubin 0.2 Conjugated Bilirubin Unconjugated Bilirubin AST 134 H ALT 92 H Alkaline Phosphatase 77 Total Creatine Kinase 357 H CK-MB (CK-2) 1.36 CK-MB (CK-2) Rel Index 0.4 L Troponin I < 0.012 Total Protein 6.8 Albumin 3.9 Globulin 2.9 Albumin/Globulin Ratio 1.3 Triglycerides Cholesterol LDL Cholesterol, Calc HDL Cholesterol Lipase 70 SARS-CoV-2 (PCR) 08/20/22 08/20/22 08/20/22 19:35 21:40 23:50 WBC RBC Hgb Hct MCV MCH MCHC RDW Plt Count Neut % (Auto) Lymph % (Auto) [place] % (Auto) Eos % (Auto) Baso % (Auto) Neut # (Auto) Lymph # (Auto) [place] # (Auto) Eos # (Auto) Baso # (Auto) PT INR APTT D-Dimer 409 Sodium Potassium Chloride Carbon Dioxide BUN Creatinine Estimated GFR BUN/Creatinine Ratio Glucose Calcium Magnesium Total Bilirubin Conjugated Bilirubin Unconjugated Bilirubin AST ALT Alkaline Phosphatase Total Creatine Kinase 338 H CK-MB (CK-2) 1.26 CK-MB (CK-2) Rel Index 0.4 L Troponin I < 0.012 Total Protein Albumin Globulin Albumin/Globulin Ratio Triglycerides Cholesterol LDL Cholesterol, Calc HDL Cholesterol Lipase SARS-CoV-2 (PCR) Negative 08/21/22 08/21/22 08/21/22 05:50 05:50 05:50 WBC 9.3 RBC 4.43 Hgb 13.6 Hct 40.4 MCV 91.2 MCH 30.7 MCHC 33.7 RDW 13.7 Plt Count 214 Neut % (Auto) 81.9 H Lymph % (Auto) 9.5 L [place] % (Auto) 7.5 Eos % (Auto) 0.8 L Baso % (Auto) 0.3 Neut # (Auto) 7600 H Lymph # (Auto) 900 L [place] # (Auto) 700 Eos # (Auto) 100 Baso # (Auto) 0 PT INR APTT D-Dimer Sodium Potassium Chloride Carbon Dioxide BUN Creatinine Estimated GFR BUN/Creatinine Ratio Glucose Calcium Magnesium Total Bilirubin 1.0 Conjugated Bilirubin 0.0 Unconjugated Bilirubin 0.4 AST 264 H ALT 200 H Alkaline Phosphatase 78 Total Creatine Kinase CK-MB (CK-2) CK-MB (CK-2) Rel Index Troponin I < 0.012 Total Protein 6.7 Albumin 3.8 Globulin 2.9 Albumin/Globulin Ratio 1.3 Triglycerides Cholesterol LDL Cholesterol, Calc HDL Cholesterol Lipase SARS-CoV-2 (PCR) 08/21/22 05:50 WBC RBC Hgb Hct MCV MCH MCHC RDW Plt Count Neut % (Auto) Lymph % (Auto) [place] % (Auto) Eos % (Auto) Baso % (Auto) Neut # (Auto) Lymph # (Auto) [place] # (Auto) Eos # (Auto) Baso # (Auto) PT INR APTT D-Dimer Sodium 135 L Potassium 4.3 Chloride 106 Carbon Dioxide 23 BUN 15 Creatinine 0.86 Estimated GFR > 60 BUN/Creatinine Ratio 17.4 Glucose 85 Calcium 8.6 Magnesium Total Bilirubin Conjugated Bilirubin Unconjugated Bilirubin AST ALT Alkaline Phosphatase Total Creatine Kinase CK-MB (CK-2) CK-MB (CK-2) Rel Index Troponin I Total Protein Albumin Globulin Albumin/Globulin Ratio Triglycerides 88 Cholesterol 203 H LDL Cholesterol, Calc 119 H HDL Cholesterol 66 H Lipase SARS-CoV-2 (PCR) [facility] Medical History ADHD Anxiety Enterovirus infection (~1999) History of uterine fibroid History of viral meningitis Impaired fasting blood sugar Menorrhagia Ovarian cyst Viral meningitis Surgical History Anesthesia Breast cyst History of section (~01/25/10) Family History Father Cancer Mother Hypertension Social History household members: family Tobacco & Substance Use Smoking Status: Former smoker alcohol intake: never Assessment & Plan Assessment and plan (1) Acute cholecystitis: Status: Acute Assessment & Plan narrative: 51-year-old woman with symptoms and radiographic findings consistent with acute cholecystitis, negative cardiac workup. I personally reviewed her CT abdomen pelvis which demonstrates acute cholecystitis. We discussed management options including conservative therapy and laparoscopic cholecystectomy. Her preference is to proceed with cholecystectomy. I have provided an overview of the operation, its benefits and its risks including bleeding, infection, damage to surrounding structures, bile duct injury. Her questions have been answered and she is in agreement with this plan. Will schedule for this afternoon and she may discharged following procedure, Time Spent With Patient Critical Care time: I spent a total of [] minutes of critical care time on this patient's care today; this time is exclusive of procedural time.
--- NOTE | 2022-08-21 13:57 | CM.DANOTE ---
Patient is a 51 yo female who was admitted on 08/20/22 for Chest Pressure. [facility] [employer] [facility] and her PCP is Eduardo Holland at [facility]. EMR was reviewed. Per MD, pt admitted initially for chest pain r/o and to have stress test but then imaging showed cholecystitis and Surgeon Consulted and plan is for gallbladder removal via Lap Mary this afternoon around 1545 and stress test cancelled as pain likely from gallbladder. SW met bedside with pt and explained role and she confirms she lives in [place] and works at baseline and is active and independent at baseline with no need for DME and drives. Pt has no hx of HH or SNF and pt has contacted her employer that she will be having surgery this afternoon. Pt is hopeful to return home tonight and [facility] just arrived bedside with some of pt's belongings and clothes and plans to remain during surgery and will provide transport at d/c. Pt does not anticipate any needs as [facility] Other is available for assist as needed. Plan: SW to follow for possible plan of d/c home tonight if stable after Lap Mary via [facility] Other POV and any further needs if pt remains overnight. SHA Bae Discharge Planning/Care Management CM Discharge Assessment Start: 08/21/22 13:53 Freq: Status: Active Protocol: Document 08/21/22 13:53 BF (Rec: 08/21/22 13:57 BF [id number]) Discharge Planning Assessment Assigned Dulser SHA Posey Advance Directives? No Advance Directives on File No History Provided By Patient,Medical Record Has Patient been admitted in last 30 No days? Prior Living Arrangements House Household Members family Type of transporation used prior to Drives own vehicle admit Independent with ADL's Yes Is patient alert and oriented? Yes Caregiver for Another No Barriers to Discharge No Discharge Plan Home Transportation Arrangement Sig Other bedside and plans to provide transport Referrals Initiated None needed Whiteboard Updated in Patient Room with Yes name and ext. # of Dulser Review Status In Process Please Provide Date Initial DC 08/21/22 Assessment Was Performed Next Review Type Continued Stay Review
--- NOTE | 2022-08-21 15:33 | SUR.OPER ---
Supine on padded OR bed, head on pillow, safety belt at thigh, left arm padded and tucked at side. Right arm secured on padded arm board <90 degrees abduction. Legs uncrossed. Padded footboard in place. Tape over blanket to secure lower legs.
[2022-08-21] MEDS: LACTATED RINGERS 1,000 ML 42 ML IV (15:43)
[2022-08-21] MEDS: CEFAZOLIN 2 GM/100 ML PREMIX 100 ML IV (15:50)
[2022-08-21] MEDS: ACETAMINOPHEN IV 1,000 MG/100 ML VIAL 400 MG IV (16:10)
[2022-08-21] MEDS: BUPIVACAINE 0.25% (PF) VIAL 30 ML INJ (16:24)
--- NOTE | 2022-08-21 17:03 | P.OP_ITS ---
Operative Date/Time/Diagnoses Date of procedure: 08/21/22 Time of procedure: 17:03 Pre-op diagnosis: acute cholecystitis Post-op diagnosis: same Procedure & Clinicians Procedure: Laparoscopic cholecystectomy Same procedure as scheduled: Yes Indications: 51F with symptoms and radiographic findings of acute cholecystitis Surgeon: Alfonso White Click Yes if Unassisted: Yes Anesthesia Type: General Operative Notes Findings: thicken gallbladder wall with hydrops Specimen(s): other (gallbladder ) Estimated Blood Loss (mL): 50 Procedure in detail: The patient was placed supine on the table and bilateral lower extremity compression devices were applied. Anesthesia was induced they were intubated wi th an endotracheal tube and received 2g of Ancef. A time-out was performed. They were prepped and draped in sterile fashion. An infraumbilical incision was made, the umbilical stalk was elevated and the fascia was sharply incised entering the abdomen atraumatically. A blunt tip 12mm balloon trocar was then inserted, pneumoperitoneum was established and inspection of the abdomen demonstrated no evidence of injury. They were placed head up and right side up and then a 11 mm port was placed high in the epigastrium and two 5mm in the right upper quadrant. Gallbladder wall was thickened and hydropic. It was percutaneously decompressed. The gallbladder was grasped by the fundus and retracted over the liver and retracted laterally by the infundibulum. Using electrocautery the lateral plane between the gallbladder and the liver was opened towards the fundus. The gallbladder was then retracted laterally and the medial plane was developed in the same manner. With the gallbladder mobilized the bottom of the cystic plate was visualized. The hepatocystic triangle was meticulosly skeletonized using hook electrocautery of all fat and fibrous tissue from both the front and the back. Only two structures were then clearly seen entering the gallbladder the cystic duct and the cystic artery. With the critical view of safety fully established the cystic duct was clipped twice proximally and once distally using the 10 mm Weck hemo clip applied under direct visualization and then sharply divided. The cystic artery was divided in the same fashion. The gallbladder was removed from the liver bed using electro cautery. The liver bed was then inspected for hemostasis and this was achieved. The abdomen was irrigated with sterile saline and inspection was made that showed the clips in good position. The specimen was removed using Endo-Catch. The abdomen was desufflated. The umbilical fascia was closed with 0 Vicryl in a [id number] fashion under direct visualization. Skin incisions were irrigated and closed with 4-0 Monocryl. 30 ml of 0.25% bupivacaine was infiltrated into the subcutaneous tissue of the incisions. The wounds were sealed with Dermabond. Patient emerged from anesthesia was extubated and transferred to recovery in stable condition. The sponge and instrument count at the end of the operation was correct. Complications: none Post-operative Condition: stable Disposition: Acute Care
[2022-08-21] MEDS: fentaNYL 100 MCG/2 ML INJ IV (17:18)
[2022-08-21] MEDS: ONDANSETRON 4 MG/2 ML INJ IV (17:18)
[2022-08-21] MEDS: hydrOXYzine 50 MG/ML INJ 25 MG IM (17:23)
--- NOTE | 2022-08-21 17:32 | PM.DS.1 ---
History of Present Illness History of Present Illness Date Patient Seen: 08/21/22 Time Patient Seen: 10:00 Chief complaint: Chest pressure Narrative: Ms. Breaux is a 51W with PMH former smoker years ago, previous elevated LDL, who presents with sudden onset chest pain. She was at work when she had midsternal chest pain that radiated to back. Pain was described as a pressure on chest as if something was sitting on my chest. She had diaphoresis associated with this. Never had chest pain, never stress test previously. No family history of cardiac disease or strokes. She was given morphine and nitro which helped her pain, but did not completely take it away. She did get aspirin en route. In the ED workup was done, vitals notable for unremarkable vital signs. Labs notable for WBC 11.3, Na 136, creatinine 0.92. AST/ALT 134/192. CK 338. Trop negative x2, EKG with new lateral t-wave inversions. Chest xray pending. She was admitted for further treatment. Discharge Providers Provider Date of admission: 08/20/22 23:23 Discharge Date: 08/21/22 Primary care physician: IRWIN Claudio Consults: 08/21/22 06:28 Consult to General Surgery Routine Comment: Consulting Provider: Phill Orantes Reason for consultation: cholecystitis Has provider been notified: Yes Discharge provider: Emigdio Jerome DO Summary Hospital Course Discharge Diagnosis: 1. Acute chest pain -patient with ekg changes with new T-wave inversions, classic sounding chest pain, with age, and former smoker and history of previous ldl has HEART score 4-5 -troponins negative x2 -EKG with t-wave inversions not present prior -ordered for aspirin/statin -d-dimer negative -echo normal with EF 60-65% and no focal WMA's 2. Acute cholecystitis -per Abd CT and Abd US with gallbladder distention, wall thickening and pericholecystic fluid -Dr. White, gen surg consulted and completed lap george on 08/21 Hospital Course: Admitted for chest pain and found to have elevated LFT's and acute cholecystitis on CT abd and abd US. Taken for lap george by Dr. White gen surg. Trops negative x3. Echo done which was normal, given stress test wouldn't be possible with recent surgery. It was felt that her CP was related to her cholecystitis so she was discharged on po pain meds by surgery and no heart meds given unlikely to be cardiac in nature. Time Spent with Patient Time spent: Greater than 30 minutes Exam Vital Signs (past 8 hours): - 08/21/22 09:41 08/21/22 14:00 08/21/22 15:35 Temperature 97.6 F 97.2 F L 98.1 F Pulse Rate 69 64 73 Respiratory Rate 18 16 18 Blood Pressure 108/68 95/67 106/68 Pulse Oximetry 97 96 96 Oxygen Delivery Method Room Air Oxygen Flow Rate 0 0 08/21/22 17:03 08/21/22 17:08 08/21/22 17:13 Temperature 97.6 F Pulse Rate 85 88 84 Respiratory Rate 14 87 H 20 Blood Pressure 123/79 105/78 126/78 Pulse Oximetry 94 96 93 Oxygen Delivery Method Room Air Room Air Room Air Oxygen Flow Rate 08/21/22 17:28 08/21/22 17:18 08/21/22 17:23 Temperature Pulse Rate 84 80 80 Respiratory Rate 19 18 18 Blood Pressure 121/76 114/68 120/82 Pulse Oximetry 93 93 93 Oxygen Delivery Method Room Air Room Air Room Air Oxygen Flow Rate Oxygen Delivery Method Room Air Oxygen Flow Rate 0 Narrative Exam Narrative: GEN: no acute distress HEENT: moist mucous membranes, PERRL NECK: trache midline, no JVD CV: regular rate and rhythm, no murmurs, no tenderness to palpation PULM: clear bilaterally, no wheezes, rhonchi, rales ABD: soft, tender to RUQ, nondistended, no organomegaly, normal bowel sounds EXT: warm and well perfused with no edema NEURO: awake, alert, oriented, no focal deficits Objective Labs Result Diagrams: 08/21/22 05:50 08/21/22 05:50 Labs: Laboratory Results - last 24 hr 08/20/22 08/20/22 08/20/22 19:35 19:35 19:35 WBC 11.3 H RBC 4.36 Hgb 13.1 Hct 39.7 MCV 90.9 MCH 30.0 MCHC 33.0 RDW 13.8 Plt Count 228 Neut % (Auto) 84.6 H Lymph % (Auto) 8.4 L Stafford % (Auto) 6.4 Eos % (Auto) 0.3 L Baso % (Auto) 0.3 Neut # (Auto) 9600 H Lymph # (Auto) 900 L Stafford # (Auto) 700 Eos # (Auto) 0 Baso # (Auto) 0 PT 11.2 INR 1.0 APTT 30 D-Dimer Sodium 136 L Potassium 4.3 Chloride 108 H Carbon Dioxide 22 BUN 20 H Creatinine 0.92 Estimated GFR > 60 BUN/Creatinine Ratio 21.7 Glucose 104 H Calcium 8.7 Magnesium 1.9 Total Bilirubin 0.2 Conjugated Bilirubin Unconjugated Bilirubin AST 134 H ALT 92 H Alkaline Phosphatase 77 Total Creatine Kinase 357 H CK-MB (CK-2) 1.36 CK-MB (CK-2) Rel Index 0.4 L Troponin I < 0.012 Total Protein 6.8 Albumin 3.9 Globulin 2.9 Albumin/Globulin Ratio 1.3 Triglycerides Cholesterol LDL Cholesterol, Calc HDL Cholesterol Lipase 70 SARS-CoV-2 (PCR) 08/20/22 08/20/22 08/20/22 19:35 21:40 23:50 WBC RBC Hgb Hct MCV MCH MCHC RDW Plt Count Neut % (Auto) Lymph % (Auto) Stafford % (Auto) Eos % (Auto) Baso % (Auto) Neut # (Auto) Lymph # (Auto) Stafford # (Auto) Eos # (Auto) Baso # (Auto) PT INR APTT D-Dimer 409 Sodium Potassium Chloride Carbon Dioxide BUN Creatinine Estimated GFR BUN/Creatinine Ratio Glucose Calcium Magnesium Total Bilirubin Conjugated Bilirubin Unconjugated Bilirubin AST ALT Alkaline Phosphatase Total Creatine Kinase 338 H CK-MB (CK-2) 1.26 CK-MB (CK-2) Rel Index 0.4 L Troponin I < 0.012 Total Protein Albumin Globulin Albumin/Globulin Ratio Triglycerides Cholesterol LDL Cholesterol, Calc HDL Cholesterol Lipase SARS-CoV-2 (PCR) Negative 08/21/22 08/21/22 08/21/22 05:50 05:50 05:50 WBC 9.3 RBC 4.43 Hgb 13.6 Hct 40.4 MCV 91.2 MCH 30.7 MCHC 33.7 RDW 13.7 Plt Count 214 Neut % (Auto) 81.9 H Lymph % (Auto) 9.5 L Stafford % (Auto) 7.5 Eos % (Auto) 0.8 L Baso % (Auto) 0.3 Neut # (Auto) 7600 H Lymph # (Auto) 900 L Stafford # (Auto) 700 Eos # (Auto) 100 Baso # (Auto) 0 PT INR APTT D-Dimer Sodium Potassium Chloride Carbon Dioxide BUN Creatinine Estimated GFR BUN/Creatinine Ratio Glucose Calcium Magnesium Total Bilirubin 1.0 Conjugated Bilirubin 0.0 Unconjugated Bilirubin 0.4 AST 264 H ALT 200 H Alkaline Phosphatase 78 Total Creatine Kinase CK-MB (CK-2) CK-MB (CK-2) Rel Index Troponin I < 0.012 Total Protein 6.7 Albumin 3.8 Globulin 2.9 Albumin/Globulin Ratio 1.3 Triglycerides Cholesterol LDL Cholesterol, Calc HDL Cholesterol Lipase SARS-CoV-2 (PCR) 08/21/22 05:50 WBC RBC Hgb Hct MCV MCH MCHC RDW Plt Count Neut % (Auto) Lymph % (Auto) Stafford % (Auto) Eos % (Auto) Baso % (Auto) Neut # (Auto) Lymph # (Auto) Stafford # (Auto) Eos # (Auto) Baso # (Auto) PT INR APTT D-Dimer Sodium 135 L Potassium 4.3 Chloride 106 Carbon Dioxide 23 BUN 15 Creatinine 0.86 Estimated GFR > 60 BUN/Creatinine Ratio 17.4 Glucose 85 Calcium 8.6 Magnesium Total Bilirubin Conjugated Bilirubin Unconjugated Bilirubin AST ALT Alkaline Phosphatase Total Creatine Kinase CK-MB (CK-2) CK-MB (CK-2) Rel Index Troponin I Total Protein Albumin Globulin Albumin/Globulin Ratio Triglycerides 88 Cholesterol 203 H LDL Cholesterol, Calc 119 H HDL Cholesterol 66 H Lipase SARS-CoV-2 (PCR) [facility] Medical History ADHD Anxiety Enterovirus infection (~1999) History of uterine fibroid History of viral meningitis Impaired fasting blood sugar Menorrhagia Ovarian cyst Viral meningitis Surgical History Anesthesia Breast cyst History of section (~01/25/10) Family History Father Cancer Mother Hypertension Social History household members: significant other and family Smoking Status: Former smoker alcohol intake: never Discharge Plan Discharge Plan Patient Disposition: Home Provider Discharge Comment: -Okay to shower tomorrow. -Do not submerge wounds in water until seen in follow-up. -No lifting >20 lbs x 4 weeks. -Walking only for exercise for 4 weeks. -No driving while taking narcotics. Discharge orders & Medications Prescriptions: New ibuprofen 200 mg tablet 400 mg PO Q6H Qty: 60 0RF acetaminophen [Tylenol] 325 mg capsule 650 mg PO QID PRN (Reason: pain) Qty: 60 0RF oxycodone 5 mg tablet 5 mg PO Q6H PRN (Reason: pain) Qty: 20 0RF Continued valacyclovir 500 mg tablet 500 mg PO BID Qty: 180 3RF Rx Instructions: FOR SUPPRESSION OF MENINGITIS multivitamin 1 tab PO DAILY ascorbate calcium (vitamin C) 1,000 mg PO DAILY cholecalciferol (vitamin D3) 1 tab-cap PO DAILY hydroxyzine HCl 10 mg tablet 15 mg PO BEDTIME Follow up/Referrals: Alfonso White MD [Physician] - 2 Weeks Eduardo Holland ARNP [Primary Care Provider] - Diet/Activity/Treatments Diet: Low-fat Skin/Wound/Dressing Care Report to your healthcare provider any signs of infection, such as:: chills, fever, increased pain, unusual drainage and unusual redness Visit Report/Discharge Packet Instructions: Gallstones Discharge Data Primary Care Provider: Eduardo Holland Attending Provider: Antonio Lowe
[2022-08-21] MEDS: OXYCODONE IR 5 MG TABLET PO (17:36)
--- NOTE | 2022-08-21 19:37 | PC.NURSE ---
Discharge: Pt returned for OR and felt ready to go home. made aware. Dr. Jerome came to see pt. Spoke with her and spouse. Discharge order written. Pt did eat a little pudding in pacu and took water on the floor. VSS on floor. Sat was 97% ra. She did void once. Pt reports pain is in control. She would like to go home. Discharge instructions reviewed and understood. Spouse has already picked up her scripts. Pt was able to amb in the room to the bathroom to void. Spouse is staying home for the week to care for her. Pt d/c to home with spouse and no concerns were voiced.
--- NOTE | 2022-08-28 11:43 | PC.NURSE ---
Late Entry; Piperacillin infusion initiated 08/21 at 0642, complete 0943. Piperacillin infusion initiated 08/21 at 1111, complete 1512.
== END 2022-08-21 19:20 | disposition home or self-care (01) ==
LOC: ED 19:10 → AC 23:24
PROVIDERS: Surgery; Admitting Provider Internal Medicine; Emergency Provider Emergency Medicine; PCP Registered Nurse Diabetes Educator; Visit Provider Internal Medicine
PROC: 0FT44ZZ Resection of Gallbladder, Percutaneous Endoscopic Approach (ICD-10-PCS; CPT 47562; principal; 2022-08-21 14:45)
DX: K81.0 Acute cholecystitis (principal); R07.89 Other chest pain; F41.9 Anxiety disorder, unspecified; F90.9 Attention-deficit hyperactivity disorder, unspecified type; Z20.822 Contact with and (suspected) exposure to COVID-19; K82.1 Hydrops of gallbladder
CPT/HCPCS: 47562; 36415; 71045; 71275; 74177; 76705; 80048; 80053; 80061; 80076; 82550; 82553; 83690; 83735; 84484; 85025; 85379; 85610; 85730; 87635; 93005; 93306; 96365; 96366; 96375; 99218; 99284; C9803; G0378; J0131; J0330; J0690; J1100; J1885; J2250; J2270; J2405; J2543; J2704; J3010; J3410; Q9967

== ENCOUNTER → 2022-12-16 09:03 | Outpatient (CLI) | payer OTHER, MEDICAID, SELFPAY ==
[2022-08-20 23:56] VITALS: BMI 25.8
--- NOTE | 2022-12-16 09:06 | DI.MG.S_ITS ---
BILATERAL DIGITAL SCREENING MAMMOGRAM 3D/2D WITH CAD: 12/16/2022 CLINICAL: Routine screening. Comparison is made to exams dated: 12/13/2021 mammogram - [facility], 10/07/2019 mammogram, and 02/03/2018 mammogram - [facility]. Both breasts are heterogeneously dense, which may obscure small masses (category c / 51-75% glandular tissue). Current study was also evaluated with a Computer Aided Detection (CAD) system. No significant masses, calcifications, or other findings are seen in either breast. There has been no significant interval change. IMPRESSION: NEGATIVE There is no mammographic evidence of malignancy. A 1 year screening mammogram is recommended. This exam was interpreted at Station ID: [id number]. NOTE: For mammograms, a report in lay terms will be sent to the patient. Approximately 15% of breast malignancies will not be visualized mammographically. In the management of a palpable breast mass, a negative mammogram must not discourage biopsy of a clinically suspicious lesion. Electronically Signed By: Jan matta/eduard:12/16/2022 09:53:18 letter sent: Normal Exam ACR BI-RADS Category 1: Negative 3341F
== END ==
PROVIDERS: PCP Registered Nurse Diabetes Educator; Referring Provider Registered Nurse Diabetes Educator; Visit Provider Registered Nurse Diabetes Educator
DX: Z12.31 Encounter for screening mammogram for malignant neoplasm of breast (principal)
CPT/HCPCS: 77063; 77067

== ENCOUNTER → 2022-12-21 07:50 | Outpatient (CLI) | payer OTHER, MEDICAID, SELFPAY ==
[2022-08-20 23:56] VITALS: BMI 25.8
[2022-12-21 09:35] LABS: Influenza A - CEPHEID Flu A NEGATIVE (NEGATIVE); Influenza B - CEPHEID Flu B NEGATIVE (NEGATIVE); Respiratory Syncytial Virus Negative (Negative)
[2022-12-21 10:11] LABS: COVID-19 CEPHEID 4-PLEX PCR Negative (Negative)
== END ==
PROVIDERS: PCP Registered Nurse Diabetes Educator; Visit Provider Nurse Practitioner Family
DX: J02.9 Acute pharyngitis, unspecified (principal); R51.9 Headache, unspecified
CPT/HCPCS: 0241U; 87070

== ENCOUNTER → 2023-01-15 08:46 | Outpatient (CLI) | payer OTHER, MEDICAID, SELFPAY ==
[2022-08-20 23:56] VITALS: BMI 25.8
[2023-01-15 12:17] LABS: Hematocrit 42.9 % (36-46); Hemoglobin 14.4 g/dL (12.0-16.0); Mean Corpuscular HGB Conc 33.6 % (30-36); Mean Corpuscular Hemoglobin 30.8 PG (26-34); Mean Corpuscular Volume 91.8 fL (80-100); Platelet Count 232 X10^3/uL (150-400); Red Blood Cell Count 4.67 X10^6/uL (4.0-5.2); White Blood Cell Count 5.9 X10^3/uL (4.5-11.0)
[2023-01-15 13:09] LABS: Alanine Aminotransferase 31 IU/L (<35); Albumin 3.9 g/dL (3.5-5.0); Albumin Globulin Ratio 1.3 (1.0-2.8); Alkaline Phosphatase 84 U/L (38-126); Aspartate Aminotransferase 31 IU/L (14-36); BUN Creatinine Ratio 20.7 (6-22); Bilirubin Total 0.5 mg/dL (0.2-1.3); Blood Urea Nitrogen 17 mg/dL (7-17); Calcium 8.7 mg/dL (8.4-10.2); Carbon Dioxide 24 mmol/L (22-32); Chloride 104 mmol/L (98-107); Cholesterol 206 mg/dL (140-199); Estimated Glomerular Filt Rate > 60 mL/min (>60); Globulin 2.9 g/dL (1.7-4.1); Glucose 72 mg/dL (70-100); HDL Cholesterol 72 mg/dL (40-60); HEMOLYSIS 21 (0-50); LDL Cholesterol Calculated 114 mg/dL (<100); Potassium 4.7 mmol/L (3.4-5.1); Sodium 137 mmol/L (137-145); Total Protein 6.8 g/dL (6.3-8.2); Triglycerides 102 mg/dL (35-150)
[2023-01-15 13:38] LABS: TSH w/ Reflex to FT4 1.75 uIU/mL (0.47-4.68)
== END ==
PROVIDERS: PCP Registered Nurse Diabetes Educator; Referring Provider Registered Nurse Diabetes Educator; Visit Provider Registered Nurse Diabetes Educator
DX: N92.0 Excessive and frequent menstruation with regular cycle (principal); R63.5 Abnormal weight gain; R73.01 Impaired fasting glucose
CPT/HCPCS: 36415; 80053; 80061; 84443; 85027

== ENCOUNTER 2023-01-17 11:31 | Day surgery (SDC) | payer OTHER, MEDICAID, SELFPAY ==
[2022-08-20 23:56] VITALS: BMI 25.8
--- NOTE | 2023-01-17 | PATH_ITS ---
[facility] Accession Number: [id number] No. of containers..01 Tissue . 01 Material submitted: . rectum - RECTUM POLYP . 01 Diagnosis: Rectum, Polyp, Biopsy: Hyperplastic polyp, four fragments. MRV 01/22/2023 1421 Local . 01 Electronically signed: . Katerina Hinojosa MD, Pathologist NPI- [id number] . 01 Gross description: . RECTUM POLYP: Received in formalin are 4 fragment(s) of carver, soft tissue measuring 0.4 x 0.2 x 0.1 cm to 0.3 x 0.1 x 0.1 cm submitted entirely in 1 cassette(s) /CPE 01/18/2023 0845 Local . 01 Pathologist provided ICD-10: K62.1 . 01 CPT . 440823 Specimen Comment: A courtesy copy of this report has been sent to [facility] Pathology Performed at: 01 [facility] [address] [place] [address], [place], [place] [id number] MD Kendall Galvez MD Phone: [phone]
[2023-01-17 12:10] VITALS: BP 116/75; PULSE 80; RESP 16; TEMP 36.3; O2SAT 96; BMI 26.6
[2023-01-17] MEDS: LACTATED RINGERS 1,000 ML 150 ML IV (12:36)
--- NOTE | 2023-01-17 13:14 | PM.HP.1 ---
History of Present Illness History of Present Illness Chief complaint: Colonoscopy Narrative: Ms. Breaux presents today for a screening colonoscopy. She is never had 1 before. She has no family history of colon cancer. She is not having any concerning symptoms. Patient History Medical History ADHD Anxiety Enterovirus infection (~1999) History of uterine fibroid History of viral meningitis Impaired fasting blood sugar Menorrhagia Ovarian cyst Viral meningitis Surgical History Anesthesia Breast cyst History of section (~01/25/10) Family & Social History Family History Father Cancer Mother Hypertension Social History: household members significant other,family Tobacco & Substance use: Tobacco type cigarettes Smoking Status Former smoker alcohol intake never Substance Use Type does not use Meds Home Medications and Allergies Home Medications Medication Instructions Recorded Confirmed Type ascorbate calcium (vitamin C) 1,000 mg PO DAILY 01/10/21 12/21/22 History cholecalciferol (vitamin D3) 1 tab-cap PO DAILY 01/10/21 12/21/22 History multivitamin [Daily Multivitamin] 1 tab PO DAILY 01/10/21 12/21/22 History acetaminophen 325 mg capsule 650 mg PO QID PRN pain #60 caps 08/21/22 12/21/22 Rx (Tylenol) hydroxyzine HCl 10 mg tablet 15 mg PO BEDTIME 08/21/22 01/17/23 History ibuprofen 200 mg tablet 400 mg PO Q6H #60 tabs 08/21/22 12/21/22 Rx valacyclovir 500 mg tablet 500 mg PO BID #180 tabs 09/10/22 01/17/23 Rx Allergies Allergy/AdvReac Type Severity Reaction Status Date / Time No Known Drug Allergies Allergy Verified 01/17/23 12:06 Exam Vital Signs (past 8 hours): - 01/17/23 12:10 Temperature 97.3 F L Pulse Rate 80 Respiratory Rate 16 Blood Pressure 116/75 Pulse Oximetry 96 Oxygen Delivery Method Room Air Oxygen Delivery Method Room Air Const General: cooperative, healthy appearing and comfortable HENMT Head: normal to inspection Resp Effort & Inspection: normal respiratory effort and able to speak in complete sentences Cardio Pulses: radial pulses present GI Palpation: soft and No tender Assessment & Plan Assessment and plan (1) Screening for colon cancer: Status: Acute Assessment & Plan narrative: I discussed the risks benefits and alternatives of a screening colonoscopy with Ms. Breaux including but not limited to perforation of the colon and it incomplete exam. She understands these and would like to proceed today. Time Spent With Patient Critical Care time: I spent a total of [] minutes of critical care time on this patient's care today; this time is exclusive of procedural time.
--- NOTE | 2023-01-17 13:57 | PM.OP.COLON ---
Operative Date/Time/Diagnoses Pre-op diagnosis: Colon cancer screening Post-op diagnosis: same Procedure & Clinicians Surgeon: Samra Rutherford Procedure Notes Procedure in detail: Patient was taken to the endoscopy suite and placed in left lateral decubitus position. A time-out was performed. Conscious sedation was performed with the help of anesthesiologist Dr. Myrick. Digital rectal exam was performed. There were some external hemorrhoids visible on exam no masses or strictures. The colonoscope was introduced into the anal canal and advanced through to the cecum. Photograph was obtained of the appendiceal orifice the prep was good [place] bowel prep of 2. The scope was withdrawn for 21 minutes. Careful examination of the mucosa was performed and there was a very small rectal polyp that was seen in biopsied. The scope was then retroflexed and a 2nd very small polyp was seen during that maneuver and also removed with biopsy forceps. Patient tolerated the procedure well and went in good condition to the postoperative care unit Specimen(s): other (Small Rectal polyps x2) Complications: none Post-procedure Plan for aftercare: The follow-up recommendation will be between 7-10 years depending on the pathology of the polyps.
[2023-01-17 14:02] VITALS: BP 108/82; PULSE 72; RESP 17; TEMP 36.4; O2SAT 100
[2023-01-17 14:08] VITALS: BP 111/66; PULSE 74; RESP 17; O2SAT 97
[2023-01-17 14:13] VITALS: BP 115/80; PULSE 77; RESP 12; TEMP 36.4; O2SAT 98
== END 2023-01-17 14:34 | disposition home or self-care (01) ==
PROVIDERS: PCP Registered Nurse Diabetes Educator; Referring Provider Surgery; Visit Provider Surgery
PROC: 0DJD8ZZ Inspection of Lower Intestinal Tract, Via Natural or Artificial Opening Endoscopic (ICD-10-PCS; CPT 45378; principal; 2023-01-17 12:30)
DX: Z12.11 Encounter for screening for malignant neoplasm of colon (principal); K62.1 Rectal polyp
CPT/HCPCS: 45380; J2250; J3010

== ENCOUNTER → 2024-01-08 09:07 | Outpatient (CLI) | payer OTHER, SELFPAY ==
[2022-08-20 23:56] VITALS: BMI 25.8
--- NOTE | 2024-01-08 | DI.MG.S_ITS ---
BILATERAL DIGITAL SCREENING MAMMOGRAM 3D/2D WITH CAD: 01/08/2024 CLINICAL: Routine screening. Comparison is made to exams dated: 12/16/2022 mammogram, 12/13/2021 mammogram - [facility], and 10/07/2019 mammogram - [facility]. Both breasts are heterogeneously dense, which may obscure small masses (category c / 51-75% glandular tissue). Current study was also evaluated with a Computer Aided Detection (CAD) system. No significant masses, calcifications, or other findings are seen in either breast. There has been no significant interval change. IMPRESSION: NEGATIVE There is no mammographic evidence of malignancy. A 1 year screening mammogram is recommended. Based on the Tyrer Cuzick model (a risk assessment model) the patient's lifetime risk is 15.5% and her 10 year risk is 3.9%. According to the ACR, ACS, and NCCN guidelines, an annual breast MRI exam along with mammogram is recommended if the patient's lifetime risk is 20% or greater. This exam was interpreted at Station ID: [id number]. NOTE: For mammograms, a report in lay terms will be sent to the patient. Approximately 15% of breast malignancies will not be visualized mammographically. In the management of a palpable breast mass, a negative mammogram must not discourage biopsy of a clinically suspicious lesion. Electronically Signed By: Jan matta/eduard:01/08/2024 12:21:34 letter sent: Normal Exam ACR BI-RADS Category 1: Negative 3341F
== END ==
LOC: MAMMO 09:07
PROVIDERS: PCP Registered Nurse Diabetes Educator; Referring Provider Registered Nurse Diabetes Educator; Visit Provider Registered Nurse Diabetes Educator
DX: Z12.31 Encounter for screening mammogram for malignant neoplasm of breast (principal); R92.333 Mammographic heterogeneous density, bilateral breasts
CPT/HCPCS: 77063; 77067